=== PATIENT | female | born 1930 | race Caucasian/White ===

== ENCOUNTER 2018-01-06 14:05 | Observation (INO) | payer OTHER ==
[2018-01-06] VITALS (7 sets, daily range): BP systolic 121–170; BP diastolic 55–75; PULSE 90–108; RESP 15–18; TEMP 98.2; O2SAT 95–98
[~2018-01-06 14:05] MED LIST: ACET325 PO; AMLO5TAB22 PO; ASPI81TA82 PO; BISA10SU8 PR; CALTCHW4 PO; LISI-360 PO; LOVA20TA PO; MILKSUS5 PO; OXYC1SOL5 PO; PERI8.6T PO
--- NOTE | 2018-01-06 14:22 | PD ---
HPI Chief Complaint: Syncope/Near-Syncope Time Seen by Provider: 14:15 Travel History International Travel<30 days: No Contact w/Intl Traveler<30days: No Traveled to known affect area: No History of Present Illness HPI The patient is a 87-year-old female who presents emergency department via EMS from [facility] after possible syncopal episode. EMS states the patient lives in an [place], independent portion, but was at a dining room table with other individuals when she apparently had a syncopal episode. The patient apparently slumped to the left, was slow to respond, however, when EMS arrived and laid her flat, she was more awake and alert. Upon arrival the patient is a somewhat limited historian, hard of hearing, but she denies any complaints. She does not recall any syncopal episode. EMS states that the patient never fell out of her chair at the dining room table, there is no evidence of trauma. Symptoms are mild to moderate, self resolving, no known exacerbating factors. She denies any headache, neck pain, chest pain, shortness breath, palpitations , nausea, vomiting, or abdominal pain. PFSH Past Medical History Hx Anticoagulant Therapy: Yes (asa) Arthritis: Yes Asthma: No Heart Rhythm Problems: No Cancer: No Cardiovascular Problems: Yes High Cholesterol: Yes Chest Pain: No Congestive Heart Failure: No COPD: No Cerebrovascular Accident: No Diabetes: No Endocrine: No Genitourinary: No Immune Disorder: No Musculoskeletal: Yes Neurologic: Yes Psychiatric: No Respiratory: Yes Migraines: No Seizures: No Sleep Apnea: No Thyroid Disease: No Past Surgical History Ear Surgery: Yes (JESSICA CATARACTS) Genitourinary Surgery: No Joint Replacement: Yes (LEFT HIP REPLACEMENT) Social History Tobacco Use: No Substance Use: No Allergies-Medications (Allergen,Severity, Reaction): Coded Allergies: No Known Allergies (Verified , 03/28/16) Reported Meds & Prescriptions Reported Meds & Active Scripts Active Reported Calcium Citrate + D3 Maximum Strength (Calcium Citrate-Vitamin D) 315-250 Mg- Unit Tab 1 Tab PO DAILY Lisinopril 10 Mg Tab 10 Mg PO DAILY Lovastatin 20 Mg Tab 20 Mg PO DAILY Aspirin 81 Mg Chew 81 Mg CHEW DAILY Amlodipine (Amlodipine Besylate) 10 Mg Tab 10 Mg PO DAILY Review of Systems ROS Limitations: Poor Historian Except as stated in HPI: all other systems reviewed are Neg HENT: No: Headaches, Lightheadedness Cardiovascular: Positive: Syncope (possible syncope per EMS), No: Chest Pain or Discomfort, Palpitations, Diaphoresis Respiratory: No: Shortness of Breath Gastrointestinal: No: Nausea, Vomiting, Abdominal Pain Musculoskeletal: No: Weakness Neurologic: Positive: Syncope (possible syncope according to EMS), No: Change in Mentation, Paresthesia, Sensory Disturbance Physical Exam Narrative GENERAL: Awake, alert, 87 year-old female who appears her stated age and is in no acute respiratory distress. SKIN: Focused skin assessment warm/dry. HEAD: Atraumatic. Normocephalic. EYES: Pupils equal and round. 3 mm bilateral and reactive. ENT: No nasal bleeding or discharge. Poor dentition. Dry mucous membranes. NECK: Trachea midline. No JVD. CARDIOVASCULAR: Regular rate and rhythm. No murmur appreciated. RESPIRATORY: No accessory muscle use. Clear to auscultation. Breath sounds equal bilaterally. GASTROINTESTINAL: Abdomen soft, non-tender, nondistended. No rebound tenderness. MUSCULOSKELETAL: No obvious deformities. No clubbing. No cyanosis. No edema. NEUROLOGICAL: Awake and alert. No obvious cranial nerve deficits. Motor grossly within normal limits. Normal speech. Oriented to person and Pres. but not month or year. PSYCHIATRIC: Appropriate mood and affect; insight and judgment normal. Data Data Last Documented VS Vital Signs Date Time Temp Pulse Resp B/P (MAP) Pulse Ox O2 Delivery O2 Flow Rate FiO2 01/06/18 16:38 101 18 157/67 (97) 98 01/06/18 15:12 Room Air 01/06/18 14:16 98.2 Orders Orders Electrocardiogram (01/06/18 14:16) Complete Blood Count With Diff (01/06/18 14:16) Comprehensive Metabolic Panel (01/06/18 14:16) Magnesium (Mg) (01/06/18 14:16) Ckmb (Isoenzyme) Profile (01/06/18 14:16) Troponin I (01/06/18 14:16) Urinalysis - C+S If Indicated (01/06/18 14:16) Chest, Single Ap (01/06/18 14:16) Ecg Monitoring (01/06/18 14:16) Iv Access Insert/Monitor (01/06/18 14:16) Oximetry (01/06/18 14:16) Sodium Chloride 0.9% Flush (Ns Flush) (01/06/18 14:30) Orthostatic Vital Signs (01/06/18 14:16) Sodium Chlorid 0.9% 500 Ml Inj (Ns 500 M (01/06/18 14:30) Cath For Specimen (01/06/18 14:18) Ct Brain W/O Iv Contrast(Rout) (01/06/18 ) CKMB (01/06/18 16:32) CKMB% (01/06/18 16:32) Labs Laboratory Tests Test 01/06/18 14:35 01/06/18 15:08 01/06/18 16:32 White Blood Count 16.5 TH/MM3 Red Blood Count 4.95 MIL/MM3 Hemoglobin 15.1 GM/DL Hematocrit 44.4 % Mean Corpuscular Volume 89.7 FL Mean Corpuscular Hemoglobin 30.5 PG Mean Corpuscular Hemoglobin Concent 34.0 % Red Cell Distribution Width 15.0 % Platelet Count 950 TH/MM3 Mean Platelet Volume 8.0 FL Neutrophils (%) (Auto) 90.5 % Lymphocytes (%) (Auto) 4.4 % Monocytes (%) (Auto) 4.5 % Eosinophils (%) (Auto) 0.1 % Basophils (%) (Auto) 0.5 % Neutrophils # (Auto) 15.0 TH/MM3 Lymphocytes # (Auto) 0.7 TH/MM3 Monocytes # (Auto) 0.8 TH/MM3 Eosinophils # (Auto) 0.0 TH/MM3 Basophils # (Auto) 0.1 TH/MM3 CBC Comment AUTO DIFF Differential Comment AUTO DIFF CONFIRMED Urine Color YELLOW Urine Turbidity HAZY Urine pH 7.0 Urine Specific [place] 1.012 Urine Protein 30 mg/dL Urine Glucose (UA) NEG mg/dL Urine Ketones NEG mg/dL Urine Occult Blood NEG Urine Nitrite NEG Urine Bilirubin NEG Urine Urobilinogen 2.0 MG/DL Urine Leukocyte Esterase TRACE Urine RBC 2 /hpf Urine WBC 1 /hpf Urine Squamous Epithelial Cells 1 /hpf Urine Hyaline Casts 6 /lpf Urine Mucus FEW /lpf Microscopic Urinalysis Comment CATH-CULT NOT IND Blood Urea Nitrogen 14 MG/DL Creatinine 0.73 MG/DL Random Glucose 96 MG/DL Total Protein 6.0 GM/DL Albumin 2.9 GM/DL Calcium Level 7.3 MG/DL Magnesium Level 1.8 MG/DL Alkaline Phosphatase 189 U/L Aspartate Amino Transf (AST/SGOT) 40 U/L Alanine Aminotransferase (ALT/SGPT) 21 U/L Total Bilirubin 0.7 MG/DL Sodium Level 135 MEQ/L Potassium Level 5.5 MEQ/L Chloride Level 103 MEQ/L Carbon Dioxide Level 25.7 MEQ/L Anion Gap 6 MEQ/L Estimat Glomerular Filtration Rate 75 ML/MIN Protein Corrected Calcium 7.9 MG/DL Total Creatine Kinase 134 U/L Creatine Kinase MB 5.0 NG/ML Troponin I 0.04 NG/ML MDM Medical Decision Making Medical Screen Exam Complete: Yes Emergency Medical Condition: Yes Medical Record Reviewed: Yes Interpretation(s) EKG reveals sinus tachycardia with short SD interval with occasional supraventricular premature complex. Last Impressions Chest X-Ray 01/06/18 1416 Signed Impressions: Service Date/Time: Saturday, January 06, 2018 14:26 - CONCLUSION: 1. Minimal basilar scarring or subsegmental atelectasis. No effusion or pneumothorax. Mayur Howell MD Head CT 01/06/18 0000 Signed Impressions: Service Date/Time: Saturday, January 06, 2018 15:59 - CONCLUSION: 1. No acute intracranial abnormalities. Mayur Howell MD Laboratory Tests Test 01/06/18 14:35 01/06/18 15:08 01/06/18 16:32 White Blood Count 16.5 TH/MM3 Red Blood Count 4.95 MIL/MM3 Hemoglobin 15.1 GM/DL Hematocrit 44.4 % Mean Corpuscular Volume 89.7 FL Mean Corpuscular Hemoglobin 30.5 PG Mean Corpuscular Hemoglobin Concent 34.0 % Red Cell Distribution Width 15.0 % Platelet Count 950 TH/MM3 Mean Platelet Volume 8.0 FL Neutrophils (%) (Auto) 90.5 % Lymphocytes (%) (Auto) 4.4 % Monocytes (%) (Auto) 4.5 % Eosinophils (%) (Auto) 0.1 % Basophils (%) (Auto) 0.5 % Neutrophils # (Auto) 15.0 TH/MM3 Lymphocytes # (Auto) 0.7 TH/MM3 Monocytes # (Auto) 0.8 TH/MM3 Eosinophils # (Auto) 0.0 TH/MM3 Basophils # (Auto) 0.1 TH/MM3 CBC Comment AUTO DIFF Differential Comment AUTO DIFF CONFIRMED Urine Color YELLOW Urine Turbidity HAZY Urine pH 7.0 Urine Specific [place] 1.012 Urine Protein 30 mg/dL Urine Glucose (UA) NEG mg/dL Urine Ketones NEG mg/dL Urine Occult Blood NEG Urine Nitrite NEG Urine Bilirubin NEG Urine Urobilinogen 2.0 MG/DL Urine Leukocyte Esterase TRACE Urine RBC 2 /hpf Urine WBC 1 /hpf Urine Squamous Epithelial Cells 1 /hpf Urine Hyaline Casts 6 /lpf Urine Mucus FEW /lpf Microscopic Urinalysis Comment CATH-CULT NOT IND Blood Urea Nitrogen 14 MG/DL Creatinine 0.73 MG/DL Random Glucose 96 MG/DL Total Protein 6.0 GM/DL Albumin 2.9 GM/DL Calcium Level 7.3 MG/DL Magnesium Level 1.8 MG/DL Alkaline Phosphatase 189 U/L Aspartate Amino Transf (AST/SGOT) 40 U/L Alanine Aminotransferase (ALT/SGPT) 21 U/L Total Bilirubin 0.7 MG/DL Sodium Level 135 MEQ/L Potassium Level 5.5 MEQ/L Chloride Level 103 MEQ/L Carbon Dioxide Level 25.7 MEQ/L Anion Gap 6 MEQ/L Estimat Glomerular Filtration Rate 75 ML/MIN Protein Corrected Calcium 7.9 MG/DL Total Creatine Kinase 134 U/L Troponin I 0.04 NG/ML Differential Diagnosis Differential diagnosis includes syncope, arrhythmia, CVA, TIA, seizure, dehydration, electrolyte abnormality. Narrative Course IV was established, labs are drawn and sent, and the patient was placed on cardiac telemetry monitoring and continuous pulse oximetry monitoring. EKG was ordered and interpreted. Orthostatic vital signs were obtained. CT of the brain was obtained. The patient was administered IV fluids. CT of the rain is negative. Chest x-rays unremarkable. The patient's UA is unremarkable. The patient does have tachycardia with a heart rate greater than 100, white, 16.5, no evidence of infection. Chest x-ray just reveals scarring and atelectasis. Patient is afebrile. The patient had a syncopal episode with loss of consciousness according to EMS, is normally alert and oriented 4. Nursing staff talked with the patient's daughter who lives in [place], the patient apparently is alert, and year. She does live in independent portion of [facility]. She is now only alert and oriented 1 out of 4, no evidence of underlying infection. May be seizure with postictal state versus syncope versus underlying infection. Therefore, patient will be 23 hour observation. The patient has [employer], therefore, [facility] were paged for 23 hour observation. Sepsis Criteria SIRS Criteria (2 or more): Heart rate over 90, WBC > 18217, < 4000 or > 10% bands Criteria Outcome: Meets SIRS criteria Physician Communication Physician Communication The patient has [employer], therefore, [facility] were paged for 23 hour observation. I discussed the patient Dr. Flaherty who agrees with 23 hour observation. Diagnosis Primary Impression: Syncope Qualified Codes: R55 - Syncope and collapse Additional Impressions: Altered mental status Qualified Codes: R41.0 - Disorientation, unspecified SIRS (systemic inflammatory response syndrome) Admitting Information Admitting Physician Requests: Observation Condition: Stable Damian Ritchie MD Jan 06, 2018 14:22
[2018-01-06] MEDS ORDERED: SODIUM CHLORID 0.9% 500 ML INJ 500 ML IV ONE (14:30)
[2018-01-06] MEDS ORDERED: SODIUM CHLORIDE 0.9% FLUSH 10 ML FLUSH IVF PRN (14:30)
[2018-01-06] MEDS ORDERED: AMLO10TA2 PO (14:53)
[2018-01-06] MEDS ORDERED: LISI10TA3 PO (14:53)
[2018-01-06] MEDS ORDERED: LOVA20TA PO (14:53)
[2018-01-06] MEDS ORDERED: ASPI-516 CHEW (14:53)
[2018-01-06] MEDS ORDERED: CALC1TAB19 PO (14:53)
--- NOTE | 2018-01-06 15:06 | RADRPT ---
EXAM DATE/TIME: 01/06/2018 14:26 [facility] COMPARISON: CHEST SINGLE AP, March 28, 2016, 16:33. INDICATIONS : Chest discomfort. MEDICAL HISTORY : None. SURGICAL HISTORY : None. ENCOUNTER: Initial ACUITY: 1 day PAIN SCORE: 6/10 LOCATION: Bilateral chest FINDINGS: A single view of the chest demonstrates minimal basilar atelectasis or scarring. No effusion or pneum othorax. Heart size upper limits normal. Mildly tortuous aorta. CONCLUSION: 1. Minimal basilar scarring or subsegmental atelectasis. No effusion or pneumothorax. Mayur Howell MD on January 06, 2018 at 15:03 Board Certified Radiologist. This report was verified electronically.
[2018-01-06 15:10] LABS: BASOPHIL # 0.1 TH/MM3 (0-0.2); BASOPHIL % 0.5 % (0.0-2.0); EOSINOPHIL % 0.1 % (0.0-4.0); HEMATOCRIT 44.4 % (35.0-46.0); HEMOGLOBIN 15.1 GM/DL (11.6-15.3); LYMPH % 4.4 % (9.0-44.0); LYMPHOCYTE # 0.7 TH/MM3 (1.0-4.8); MEAN CELL VOLUME 89.7 FL (80.0-100.0); MEAN CORPUSCULAR HEMOGLOBIN 30.5 PG (27.0-34.0); MONO % 4.5 % (0.0-8.0); MONOCYTE # 0.8 TH/MM3 (0-0.9); NEUT % 90.5 % (16.0-70.0); PLATELET COUNT 950 TH/MM3 (150-450); RED BLOOD COUNT 4.95 MIL/MM3 (4.00-5.30); WHITE BLOOD COUNT 16.5 TH/MM3 (4.0-11.0)
[2018-01-06 15:46] LABS: BILIRUBIN, URINE NEG (NEG); BLOOD, URINE NEG (NEG); GLUCOSE,URINE NEG (NEG); HYALINE CAST, URINE 6 /lpf (RARE); KETONE, URINE NEG (NEG); MUCUS URINE FEW /lpf (OCC); NITRITE,URINE NEG (NEG); SQUAMOUS EPITHELIAL CELL URINE 1 /hpf (0-5); URINE COLOR YELLOW (YELLW/STRAW); URINE LEUKOCYTE ESTERASE TRACE (NEG)
--- NOTE | 2018-01-06 16:33 | RADRPT ---
EXAM DATE/TIME: 01/06/2018 15:59 [facility] COMPARISON: No previous studies available for comparison. INDICATIONS : Witnessed syncopal episode. RADIATION DOSE: 35.12 CTDIvol (mGy) MEDICAL HISTORY : Cardiovascular disease. Hypertension. SURGICAL HISTORY : Hysterectomy. ENCOUNTER: Initial ACUITY: 1 day PAIN SCALE: 0/10 LOCATION: cranial TECHNIQUE: Multiple contiguous axial images were obtained of the head. Using automated exposure control and adj ustment of the mA and/or kV according to patient size, radiation dose was kept as low as reasonably a chievable to obtain optimal diagnostic quality images. DICOM format image data is available electro nically for review and comparison. FINDINGS: CEREBRUM: The ventricles are normal for age. No evidence of midline shift, mass lesion, hemorrhage or acute in farction. No extra-axial fluid collections are seen. POSTERIOR FOSSA: The cerebellum and brainstem are intact. The 4th ventricle is midline. The cerebellopontine angle i s unremarkable. EXTRACRANIAL: The visualized portion of the orbits is intact. SKULL: The calvaria is intact. No evidence of skull fracture. CONCLUSION: 1. No acute intracranial abnormalities. Mayur Howell MD on January 06, 2018 at 16:30 Board Certified Radiologist. This report was verified electronically.
[2018-01-06 17:13] LABS: ALBUMIN 2.9 GM/DL (3.4-5.0); ALKALINE PHOSPHATASE 189 U/L (45-117); ALT (GPT) 21 U/L (10-53); BICARBONATE 25.7 MEQ/L (21.0-32.0); BLOOD UREA NITROGEN 14 MG/DL (7-18); CALCIUM 7.3 MG/DL (8.5-10.1); CALCIUM-PROTEIN CORRECTED 7.9 MG/DL (8.5-10.1); CHLORIDE 103 MEQ/L (98-107); CREATININE 0.73 MG/DL (0.50-1.00); GLOMERULAR FILTRATION RATE 75 ML/MIN (>89); GLUCOSE,RANDOM 96 MG/DL (74-106); MAGNESIUM 1.8 MG/DL (1.5-2.5); SODIUM (NA) 135 MEQ/L (136-145); TOTAL BILIRUBIN ADULT 0.7 MG/DL (0.2-1.0); TROPONIN I 0.04 NG/ML (0.02-0.05)
[2018-01-06 17:15] LABS: AST (GOT) 40 U/L (15-37)
[2018-01-06] MEDS ORDERED: ONDANSETRON HCL 4 MG/2 ML VIAL IVP PRN (18:00)
[2018-01-06] MEDS ORDERED: NALOXONE HCL 0.4 MG/ML AMP IV PUSH PRN (18:00)
[2018-01-06] MEDS ORDERED: LACTULOSE SYRUP 20 GM/30 ML CUP PO PRN (18:00)
[2018-01-06] MEDS ORDERED: BISACODYL 10 MG SUPP RECTAL PRN (18:00)
[2018-01-06] MEDS ORDERED: MAGNESIUM HYDROXIDE SUSP 30 ML CUP PO PRN (18:00)
[2018-01-06] MEDS ORDERED: SENNOSIDES 8.6 MG TAB PO PRN (18:00)
[2018-01-06] MEDS ORDERED: ACETAMINOPHEN 325 MG TAB PO PRN (18:00)
--- NOTE | 2018-01-06 18:18 | HHI.HP ---
[facility] Eugenio Ortiz, DO Admission Diagnosis syncope, altered mental status, SIRS Diagnoses: (1) Hyperlipemia (2) SIRS (systemic inflammatory response syndrome) (3) Syncope (4) Altered mental status (5) HTN (hypertension) Chief Complaint: Syncope Travel History International Travel<30 Days: No Contact w/Intl Traveler <30 Da: No Traveled to Known Affected Are: No Sepsis Criteria SIRS Criteria (2 or more): Heart rate over 90, WBC > 31184, < 4000 or > 10% bands Criteria Outcome: Meets SIRS criteria History of Present Illness The patient is an 87-year-old female who presented to the emergency department following apparent syncopal episode. She resides in assisted living. The patient is unable to provide meaningful history. She is oriented only to self. History is gathered from discussion with the ER physician and review of the electronic medical record. The patient was reportedly sitting at a dining room table with other individuals. She was seen to slump to the left and was not responding to verbal stimuli. Upon EMS arrival, patient was more alert, but remained confused. The patient does not know why she is here. She also does not know that she is in the hospital. No other episodes were reported. The patient apparently has not had any known falls. Review of Systems ROS Limitations: Clinical Condition, Altered Mental Status, Poor Historian Constitutional: DENIES: Fever, Chills, Night Sweats Eyes: DENIES: Blurred vision, Vision loss Ears, nose, mouth, throat: DENIES: Hearing loss Respiratory: DENIES: Cough, Wheezing, Sputum production, Shortness of breath Cardiovascular: DENIES: Chest pain, Palpitations, Dyspnea on Exertion, Lower Extremity Edema Gastrointestinal: DENIES: Abdominal pain, Constipation, Diarrhea, Nausea, Vomiting Genitourinary: DENIES: Urinary frequency, Urinary incontinence, Urgency, Hematuria, Dysuria, Nocturia Musculoskeletal: DENIES: Joint pain, Muscle aches Integumentary: DENIES: Pruritus, Rash Hematologic/lymphatic: DENIES: Bruising Neurologic: DENIES: Headache Past Family Social History Past Medical History Osteoarthritis Hyperlipidemia Hypertension Past Surgical History Bilateral cataract surgery Left hip replacement Reported Medications Calcium Citrate + D3 Maximum Strength (Calcium Citrate-Vitamin D) 315-250 Mg- Unit Tab 1 Tab PO DAILY Lisinopril 10 Mg Tab 10 Mg PO DAILY Lovastatin 20 Mg Tab 20 Mg PO DAILY Aspirin 81 Mg Chew 81 Mg CHEW DAILY Amlodipine (Amlodipine Besylate) 10 Mg Tab 10 Mg PO DAILY Allergies: Coded Allergies: No Known Allergies (Verified , 03/28/16) Family History Unobtainable due to patient's altered mental status Social History Unobtainable. Per ER documentation, no history of tobacco or illicit drug use. Physical Exam Vital Signs Vital Signs Date Time Temp Pulse Resp B/P (MAP) Pulse Ox O2 Delivery O2 Flow Rate FiO2 01/06/18 16:38 101 18 157/67 (97) 98 01/06/18 15:12 16 95 Room Air 01/06/18 14:16 98.2 90 16 121/55 (77) 95 Physical Exam GENERAL: Thin elderly female in no acute distress. HEENT: Normocephalic, atraumatic. Pupils equal, round and reactive. Extraocular movements intact. No scleral icterus. No injection or drainage. Oropharynx is clear. Mucous membranes are moist. CARDIOVASCULAR: Regular rate and rhythm without murmurs, gallops, or rubs. RESPIRATORY: Clear to auscultation. No wheezes, rales, or rhonchi. Breathing is non-labored. GASTROINTESTINAL: Abdomen soft, non-tender, nondistended. EXTREMITIES: No lower extremity edema. No calf tenderness. PSYCH: Alert confused. Oriented only to self. NEURO: Cranial nerves II through XII are grossly intact. Patient has apparent weakness of both lower extremities, but it is difficult to tell if this is because she is not adequately following directions during exam. Production [employer] Solderer strength is 4/5 and equal bilaterally. Laboratory Laboratory Tests Test 01/06/18 14:35 01/06/18 15:08 01/06/18 16:32 White Blood Count 16.5 Red Blood Count 4.95 Hemoglobin 15.1 Hematocrit 44.4 Mean Corpuscular Volume 89.7 Mean Corpuscular Hemoglobin 30.5 Mean Corpuscular Hemoglobin Concent 34.0 Red Cell Distribution Width 15.0 Platelet Count 950 Mean Platelet Volume 8.0 Neutrophils (%) (Auto) 90.5 Lymphocytes (%) (Auto) 4.4 Monocytes (%) (Auto) 4.5 Eosinophils (%) (Auto) 0.1 Basophils (%) (Auto) 0.5 Neutrophils # (Auto) 15.0 Lymphocytes # (Auto) 0.7 Monocytes # (Auto) 0.8 Eosinophils # (Auto) 0.0 Basophils # (Auto) 0.1 CBC Comment AUTO DIFF Differential Comment AUTO DIFF CONFIRMED Urine Color YELLOW Urine Turbidity HAZY Urine pH 7.0 Urine Specific [place] 1.012 Urine Protein 30 Urine Glucose (UA) NEG Urine Ketones NEG Urine Occult Blood NEG Urine Nitrite NEG Urine Bilirubin NEG Urine Urobilinogen 2.0 Urine Leukocyte Esterase TRACE Urine RBC 2 Urine WBC 1 Urine Squamous Epithelial Cells 1 Urine Hyaline Casts 6 Urine Mucus FEW Microscopic Urinalysis Comment CATH-CULT NOT IND Blood Urea Nitrogen 14 Creatinine 0.73 Random Glucose 96 Total Protein 6.0 Albumin 2.9 Calcium Level 7.3 Magnesium Level 1.8 Alkaline Phosphatase 189 Aspartate Amino Transf (AST/SGOT) 40 Alanine Aminotransferase (ALT/SGPT) 21 Total Bilirubin 0.7 Sodium Level 135 Potassium Level 5.5 Chloride Level 103 Carbon Dioxide Level 25.7 Anion Gap 6 Estimat Glomerular Filtration Rate 75 Protein Corrected Calcium 7.9 Total Creatine Kinase 134 Creatine Kinase MB 5.0 Troponin I 0.04 Result Diagram: 01/06/18 1435 01/06/18 1632 Imaging Last Impressions Chest X-Ray 01/06/18 1416 Signed Impressions: Service Date/Time: Saturday, January 06, 2018 14:26 - CONCLUSION: 1. Minimal basilar scarring or subsegmental atelectasis. No effusion or pneumothorax. Mayur Howell MD Head CT 01/06/18 0000 Signed Impressions: Service Date/Time: Saturday, January 06, 2018 15:59 - CONCLUSION: 1. No acute intracranial abnormalities. Mayur Howell MD Caprini VTE Risk Assessment Caprini VTE Risk Assessment: Mod/High Risk (score >= 2) Caprini Risk Assessment Model Point Value = 1 Point Value = 2 Point Value = 3 Point Value = 5 Age 41-60 Minor surgery BMI > 25 kg/m2 Swollen legs Varicose veins or History of unexplained or recurrent spontaneous Oral contraceptives or hormone replacement Sepsis (< 1 month) Serious lung disease, including pneumonia (< 1 month) Abnormal pulmonary function Acute myocardial infarction Congestive heart failure (< 1 month) History of inflammatory bowel disease Medical patient at bed rest Age 61-74 Arthroscopic surgery Major open surgery (> 45 min) Laparoscopic surgery (> 45 min) Malignancy Confined to bed (> 72 hours) Immobilizing plaster cast Central venous access Age >= 75 History of VTE Family history of VTE Factor V Leiden Prothrombin [id number] Lupus anticoagulant Anticardiolipin antibodies Elevated serum homocysteine Heparin-induced thrombocytopenia Other congenital or acquired thrombophilia Stroke (< 1 month) Elective arthroplasty Hip, pelvis, or leg fracture Acute spinal cord injury (< 1 month) Prophylaxis Regimen Total Risk Factor Score Risk Level Prophylaxis Regimen 0-1 Low Early ambulation 2 Moderate Order ONE of the following: *Sequential Compression Device (SCD) *Heparin 5000 units SQ BID 3-4 Higher Order ONE of the following medications: *Heparin 5000 units SQ TID *Enoxaparin/Lovenox 40 mg SQ daily (WT < 150 kg, CrCl > 30 mL/min) *Enoxaparin/Lovenox 30 mg SQ daily (WT < 150 kg, CrCl > 10-29 mL/min) *Enoxaparin/Lovenox 30 mg SQ BID (WT < 150 kg, CrCl > 30 mL/min) AND/OR *Sequential Compression Device (SCD) 5 or more Highest Order ONE of the following medications: *Heparin 5000 units SQ TID (Preferred with Epidurals) *Enoxaparin/Lovenox 40 mg SQ daily (WT < 150 kg, CrCl > 30 mL/min) *Enoxaparin/Lovenox 30 mg SQ daily (WT < 150 kg, CrCl > 10-29 mL/min) *Enoxaparin/Lovenox 30 mg SQ BID (WT < 150 kg, CrCl > 30 mL/min) AND *Sequential Compression Device (SCD) Assessment and Plan Assessment and Plan 1. Syncopal episode: Uncertain etiology. Patient was reportedly sitting at a table when the episode occurred. She also remains confused following the episode. No seizure activity was reported. CT of the head is negative. Monitor on cardiac telemetry. Check echocardiogram, EEG. Rule out ACS with serial cardiac enzymes and EKGs. 2. Hypertension: Continue lisinopril, amlodipine. 3. Hyperlipidemia: Continue lovastatin. 4. Sirs: Patient meets criteria with tachycardia, leukocytosis. No obvious source of infection. Urinalysis is negative. Patient is afebrile. Chest x- ray shows probable atelectasis. 5. DVT prophylaxis: SCDs, ARACELI hose, heparin. Problem Qualifiers (1) Syncope: Qualified Codes: R55 - Syncope and collapse (2) Altered mental status: Qualified Codes: R41.0 - Disorientation, unspecified Luis Manuel Flaherty MD Jan 06, 2018 18:18
[2018-01-06] MEDS: SODIUM CHLOR 0.9% 1000 ML INJ 1,000 ML IV SCH (19:00)
[2018-01-06] MEDS: HEPARIN SODIUM - SQ 10,000 UNITS/ML VIAL SQ SCH (20:27)
[2018-01-06 21:53] LABS: TROPONIN I 0.05 NG/ML (0.02-0.05)
[2018-01-07] VITALS (8 sets, daily range): BP systolic 102–148; BP diastolic 51–76; PULSE 67–86; RESP 12–16; TEMP 97.6–98.1; O2SAT 91–96
--- NOTE | 2018-01-07 09:18 | HHI.PR ---
Subjective Remarks Follow up encephalopathy, syncopal episode. Patient remains confused. She is only oriented to self. She denies pain, dyspnea, nausea. Objective Vitals Vital Signs Date Time Temp Pulse Resp B/P (MAP) Pulse Ox O2 Delivery O2 Flow Rate FiO2 01/07/18 05:00 75 01/07/18 04:33 97.6 78 15 129/60 (83) 92 01/06/18 21:27 98.2 94 15 126/57 (80) 98 01/06/18 20:35 01/06/18 20:00 98 01/06/18 18:13 96 21 01/06/18 16:38 101 18 157/67 (97) 98 01/06/18 15:12 16 95 Room Air 01/06/18 15:05 108 16 170/75 (106) 97 Nasal Cannula 2.00 01/06/18 14:16 98.2 90 16 121/55 (77) 95 I/O 01/06/18 01/06/18 01/06/18 01/07/18 01/07/18 01/07/18 07:00 15:00 23:00 07:00 15:00 23:00 Intake Total 500 ml 480 ml Balance 500 ml 480 ml Intake Oral 480 ml IV Total 500 ml # Voids 2 Result Diagram: 01/06/18 1435 01/06/18 1632 Imaging Last Impressions Chest X-Ray 01/06/18 1416 Signed Impressions: Service Date/Time: Saturday, January 06, 2018 14:26 - CONCLUSION: 1. Minimal basilar scarring or subsegmental atelectasis. No effusion or pneumothorax. Mayur Howell MD Head CT 01/06/18 0000 Signed Impressions: Service Date/Time: Saturday, January 06, 2018 15:59 - CONCLUSION: 1. No acute intracranial abnormalities. Mayur Howell MD Objective Remarks General: Thin elderly female in no acute distress. Heart: Regular rate and rhythm. No murmur. Lungs: Clear to auscultation bilaterally. No wheezes, rales, or rhonchi. Breathing is nonlabored. Abdomen: Soft, nontender, nondistended. Extremities: No lower extremity edema. Psych: Alert, confused. Patient oriented only to self. Neuro: Good strength on flexion and extension at the ankle. Patient does not really follow commands for more neuro exam. Procedures None Urinary Catheter: No Vascular Central Line Catheter: No A/P Problem List: (1) Hyperlipemia ICD Code: E78.5 - Hyperlipidemia, unspecified Status: Acute (2) SIRS (systemic inflammatory response syndrome) ICD Code: R65.10 - Systemic inflammatory response syndrome (SIRS) of non- infectious origin without acute organ dysfunction Status: Acute (3) Syncope ICD Code: R55 - Syncope and collapse Status: Acute (4) Altered mental status ICD Code: R41.82 - Altered mental status, unspecified Status: Acute (5) HTN (hypertension) ICD Code: I10 - Essential (primary) hypertension Status: Chronic Assessment and Plan 1. Syncopal episode: Uncertain etiology. Patient was reportedly sitting at a table when the episode occurred. She remains confused. No seizure activity was reported. CT of the head is negative. Monitor on cardiac telemetry. Third set of cardiac enzymes is pending. EEG and echocardiogram are pending. Consult neurology for further recommendations. 2. Hypertension: Continue lisinopril, amlodipine. 3. Hyperlipidemia: Continue lovastatin. 4. Sirs: Patient meets criteria with tachycardia, leukocytosis. No obvious source of infection. Urinalysis is negative. Patient is afebrile. Chest x- ray shows probable atelectasis. 5. Leukocytosis: Uncertain etiology. Labs are pending this morning. 6. Hyperkalemia: Hemolysis noted on sample sent to lab. Repeat labs are pending. 7. DVT prophylaxis: SCDs, ARACELI hose, heparin. 8. Code status: FULL CODE I spoke with the patient's daughter (who is the healthcare surrogate) and son-in -law via telephone. States that she was recently given oxycodone by her PCP for back pain. They are uncertain if she took it prior to this episode. They state that her mental status has been very good with only occasional confusion recently. She is able to live independently at baseline. At this time she is full code. She has a living will, which her daughter will review and let us know if there are some aspects of the code status that she would want changed. Problem Qualifiers (1) Syncope: Qualified Codes: R55 - Syncope and collapse (2) Altered mental status: Qualified Codes: R41.0 - Disorientation, unspecified Luis aMnuel Flaherty MD Jan 07, 2018 09:18
[2018-01-07 10:12] LABS: BASOPHIL # 0.1 TH/MM3 (0-0.2); BASOPHIL % 0.8 % (0.0-2.0); EOSINOPHIL # 0.1 TH/MM3 (0-0.4); EOSINOPHIL % 0.7 % (0.0-4.0); HEMATOCRIT 42.5 % (35.0-46.0); HEMOGLOBIN 14.5 GM/DL (11.6-15.3); LYMPH % 11.9 % (9.0-44.0); LYMPHOCYTE # 1.2 TH/MM3 (1.0-4.8); MEAN CELL VOLUME 89.9 FL (80.0-100.0); MEAN CORPUSCULAR HEMOGLOBIN 30.6 PG (27.0-34.0); MEAN PLATELET VOLUME 7.9 FL (7.0-11.0); MONO % 8.3 % (0.0-8.0); MONOCYTE # 0.9 TH/MM3 (0-0.9); NEUT % 78.3 % (16.0-70.0); PLATELET COUNT 710 TH/MM3 (150-450); RED BLOOD COUNT 4.72 MIL/MM3 (4.00-5.30); RED CELL DISTRIBUTION WIDTH 14.9 % (11.6-17.2); WHITE BLOOD COUNT 10.3 TH/MM3 (4.0-11.0)
[2018-01-07] MEDS: PRAVASTATIN SOD 20 MG TAB PO SCH (10:37)
[2018-01-07] MEDS: LISINOPRIL 10 MG TAB PO SCH (10:37)
[2018-01-07] MEDS: ASPIRIN 81 MG CHEW TAB CHEW SCH (10:37)
[2018-01-07] MEDS: CALCIUM/VITAMIN D 250 MG/125 U TAB PO SCH (10:38)
[2018-01-07] MEDS: HEPARIN SODIUM - SQ 10,000 UNITS/ML VIAL SQ SCH ×2 (10:38→22:09)
[2018-01-07 11:02] LABS: ALBUMIN 2.9 GM/DL (3.4-5.0); ALKALINE PHOSPHATASE 183 U/L (45-117); ALT (GPT) 16 U/L (10-53); AST (GOT) 15 U/L (15-37); BICARBONATE 27.8 MEQ/L (21.0-32.0); BLOOD UREA NITROGEN 14 MG/DL (7-18); CALCIUM 8.4 MG/DL (8.5-10.1); CHLORIDE 101 MEQ/L (98-107); CREATININE 0.66 MG/DL (0.50-1.00); GLOMERULAR FILTRATION RATE 85 ML/MIN (>89); GLUCOSE,RANDOM 73 MG/DL (74-106); SODIUM (NA) 136 MEQ/L (136-145); TOTAL BILIRUBIN ADULT 0.7 MG/DL (0.2-1.0); TOTAL PROTEIN 5.9 GM/DL (6.4-8.2); TROPONIN I 0.03 NG/ML (0.02-0.05)
--- NOTE | 2018-01-07 12:30 | MB ---
cc: Sophia Jennings MD DATE OF CONSULT: REASON FOR CONSULTATION: Encephalopathy. The patient does not know why she is here. History is taken from the chart. An 87-year-old woman who came to the hospital for possible syncope. Lives in an assisted living. Apparently ER physician found out that apparently she was sitting in a dining room and slumped to the left, not responding. Currently, she knows she is at [facility]. She has a history of hypertension, hyperlipidemia, on lisinopril, lovastatin, baby aspirin, amlodipine. ALLERGIES: NONE REPORTED. FAMILY HISTORY: Noncontributory at this time. SOCIAL HISTORY: Apparently lives in assisted living. On exam, vitals: Temperature is 97.6, pulse 76, respiratory rate 12, blood pressure 148/63. Her neck is supple. Heart is regular. She is awake and alert. She knows herself. She knows she is at [facility]. She does not know the month or the year. I asked her who the president was; she stated Galvez. Speech otherwise is fluent. Pupils reactive. Motor-barry, she seems to move everything equally. I do not see any signs of 1-sided weakness. Toes: Withdraws. DTRs of 1+. Gait is withheld. LABORATORIES: Reviewed. UA is hazy. Culture was not indicated. Chemistries: Glucose 73, GFR 85, calcium 8.4, albumin 2.9. CBC had a white count 16.5 yesterday; today it is normal. Platelets 710,000. CT head did not show anything acute. Chest x-ray: Subsegmental atelectasis. IMPRESSION: Encephalopathy, questionable etiology of syncope. EEG and echocardiogram are pending. I would also go ahead and get an MRI. There is no contraindication just to look for anything such as a stroke. Leukocytosis is uncertain etiology. Labs this morning, white count is normal. There was some report about her being given some oxycodone by her PCP. They do not know if she has taken that medicine, but I would think if she is in an assisted living, that would be controlled. Go ahead and get the EEG and echo. I am going to add an MRI and further recommendations to be made. MD ELOY Boykin , 12:15 PM , 12:28 PM
[2018-01-07] MEDS: SODIUM CHLOR 0.9% 1000 ML INJ 1,000 ML IV SCH (17:34)
--- NOTE | 2018-01-07 17:43 | RADRPT ---
EXAM DATE/TIME: 01/07/2018 17:03 [facility] COMPARISON: CT BRAIN W/O CONTRAST, January 06, 2018, 15:59. INDICATIONS : Altered mental status. CVA. MEDICAL HISTORY : Hypertension. Osteoarthritis. SURGICAL HISTORY : Right hip/ Films cleared by Rad. ENCOUNTER: Initial ACUITY: 2 day PAIN SCORE: 0/10 LOCATION: head TECHNIQUE: Multiplanar, multisequence MRI of the brain was performed without contrast. FINDINGS: Diffusion weighted images demonstrate no evidence for acute infarction. 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 There are no signs of mass or hem orrhage. CONCLUSION: Atrophy and white matter disease with no evidence for acute infarct, hemorrhage or mass. Duc Ritchie MD on January 07, 2018 at 17:40 Board Certified Radiologist. This report was verified electronically.
--- NOTE | 2018-01-07 18:34 | EKG ---
Date Performed: 01/06/2018 Time Performed: 14:57:55 PTAGE: 87 years EKG: SINUS TACHYCARDIA WITH SHORT [place] INTERVAL WITH OCCASIONAL SUPRAVENTRICULAR PREMATURE COMPLEX ES ABNORMAL RHYTHM ECG PREVIOUS TRACING : 01/04/2004 16.16 Since the prior tracing, there has been no significant benites DOCTOR: Payton Massey Interpretating Date/Time 01/07/2018 18:32:15
[2018-01-08] VITALS (9 sets, daily range): BP systolic 101–124; BP diastolic 52–63; PULSE 66–88; RESP 14–20; TEMP 97.4–98.5; O2SAT 91–95
[2018-01-08 07:34] LABS: AUTOMATED NEUTROPHIL # 7.4 TH/MM3 (1.8-7.7); BASOPHIL # 0.1 TH/MM3 (0-0.2); BASOPHIL % 0.7 % (0.0-2.0); EOSINOPHIL # 0.1 TH/MM3 (0-0.4); EOSINOPHIL % 1.4 % (0.0-4.0); HEMATOCRIT 38.8 % (35.0-46.0); HEMOGLOBIN 13.5 GM/DL (11.6-15.3); LYMPHOCYTE # 1.2 TH/MM3 (1.0-4.8); MEAN CELL VOLUME 91.6 FL (80.0-100.0); MEAN CORPUSCULAR HEMOGLOBIN 31.7 PG (27.0-34.0); MEAN CORPUSCULAR HGB CONC 34.6 % (32.0-36.0); MEAN PLATELET VOLUME 7.9 FL (7.0-11.0); NEUT % 75.9 % (16.0-70.0); PLATELET COUNT 633 TH/MM3 (150-450); RED BLOOD COUNT 4.24 MIL/MM3 (4.00-5.30); WHITE BLOOD COUNT 9.8 TH/MM3 (4.0-11.0)
[2018-01-08 08:02] LABS: BICARBONATE 27.9 MEQ/L (21.0-32.0); CALCIUM 8.4 MG/DL (8.5-10.1); MAGNESIUM 1.8 MG/DL (1.5-2.5)
[2018-01-08 08:09] LABS: CREATININE 0.64 MG/DL (0.50-1.00)
[2018-01-08] MEDS: HEPARIN SODIUM - SQ 10,000 UNITS/ML VIAL SQ SCH ×2 (08:30→19:45)
[2018-01-08] MEDS: ASPIRIN 81 MG CHEW TAB CHEW SCH (08:30)
[2018-01-08] MEDS: LISINOPRIL 10 MG TAB PO SCH (08:30)
[2018-01-08] MEDS: PRAVASTATIN SOD 20 MG TAB PO SCH (08:30)
[2018-01-08] MEDS: CALCIUM/VITAMIN D 250 MG/125 U TAB PO SCH (08:30)
--- NOTE | 2018-01-08 08:33 | HHI.PR ---
Subjective Remarks Follow up encephalopathy, weakness. Patient has no complaints at this time. Denies pain, dyspnea, nausea, vomiting. She remains confused. Objective Vitals Vital Signs Date Time Temp Pulse Resp B/P (MAP) Pulse Ox O2 Delivery O2 Flow Rate FiO2 01/08/18 07:29 97.8 72 18 118/59 (78) 95 01/08/18 07:25 66 01/08/18 04:03 97.4 83 14 121/63 (82) 95 01/08/18 00:22 97.9 75 16 110/55 (73) 94 01/07/18 23:13 70 01/07/18 20:34 97.6 78 16 102/51 (68) 91 01/07/18 20:00 95 01/07/18 15:36 98.1 86 16 117/76 (90) 96 01/07/18 09:22 97.6 76 12 148/63 (91) 94 I/O 01/07/18 01/07/18 01/07/18 01/08/18 01/08/18 01/08/18 07:00 15:00 23:00 07:00 15:00 23:00 Intake Total 480 ml Balance 480 ml Intake Oral 480 ml # Voids 2 3 2 Result Diagram: 01/08/18 0610 01/08/18 0610 Imaging Last Impressions Brain MRI 01/07/18 0000 Signed Impressions: Service Date/Time: Sunday, January 07, 2018 17:03 - CONCLUSION: Atrophy and white matter disease with no evidence for acute infarct, hemorrhage or mass. Duc Ritchie MD Chest X-Ray 01/06/18 1416 Signed Impressions: Service Date/Time: Saturday, January 06, 2018 14:26 - CONCLUSION: 1. Minimal basilar scarring or subsegmental atelectasis. No effusion or pneumothorax. Mayur Howell MD Head CT 01/06/18 0000 Signed Impressions: Service Date/Time: Saturday, January 06, 2018 15:59 - CONCLUSION: 1. No acute intracranial abnormalities. Mayur Howell MD Objective Remarks General: Thin elderly female in no acute distress. Heart: Regular rate and rhythm. No murmur. Lungs: Clear to auscultation bilaterally. No wheezes, rales, or rhonchi. Breathing is nonlabored. Abdomen: Soft, nontender, nondistended. Extremities: No lower extremity edema. Psych: Alert, confused. Patient oriented only to self. States the year is 1920. Procedures None Urinary Catheter: No Vascular Central Line Catheter: No A/P Problem List: (1) Hyperlipemia ICD Code: E78.5 - Hyperlipidemia, unspecified Status: Acute (2) SIRS (systemic inflammatory response syndrome) ICD Code: R65.10 - Systemic inflammatory response syndrome (SIRS) of non- infectious origin without acute organ dysfunction Status: Acute (3) Syncope ICD Code: R55 - Syncope and collapse Status: Acute (4) Altered mental status ICD Code: R41.82 - Altered mental status, unspecified Status: Acute (5) HTN (hypertension) ICD Code: I10 - Essential (primary) hypertension Status: Chronic Assessment and Plan 1. Syncopal episode: Uncertain etiology. Patient was reportedly sitting at a table when the episode occurred. She remains confused. No seizure activity was reported. CT of the head is negative. Monitor on cardiac telemetry. Third set of cardiac enzymes is pending. EEG and echocardiogram are pending. Appreciate neurology recommendations. MRI shows atrophy and white matter disease with no evidence for acute infarct, hemorrhage, or mass. 2. Hypertension: Continue lisinopril, amlodipine. 3. Hyperlipidemia: Continue lovastatin. 4. Sirs: Patient meets criteria with tachycardia, leukocytosis. No obvious source of infection. Urinalysis is negative. Patient remains afebrile. Chest x-ray shows probable atelectasis. 5. Leukocytosis: Uncertain etiology. Resolved. 6. Hyperkalemia: Hemolysis noted on sample sent to lab. Resolved. 7. DVT prophylaxis: SCDs, ARACELI hose, heparin. 8. Code status: FULL CODE I spoke with the patient's daughter (who is the healthcare surrogate) and son-in -law via telephone on 01/07/18. Daughter states that the patient was recently given oxycodone by her PCP for back pain. They are uncertain if she had been taking it prior to this episode. They state that her mental status has been very good with only occasional confusion recently. She is able to live independently at baseline. At this time she is full code. She has a living will , which her daughter will review and let us know if there are some aspects of the code status that she would want changed. Problem Qualifiers (1) Syncope: Qualified Codes: R55 - Syncope and collapse (2) Altered mental status: Qualified Codes: R41.0 - Disorientation, unspecified Luis Manuel Flaherty MD Jan 08, 2018 08:33
[2018-01-08 09:10] LABS: BANDS 8 % (0-6); LYMPHOCYTES 11 % (9-44); METAMYELOCYTES 2 % (0-1); MONOCYTES 6 % (0-8); MYELOCYTES 1 % (0-0); NEUTROPHIL # MANUAL DIFF 7.8 TH/MM3 (1.8-7.7); OVALOCYTES 1+ (NORMAL); POLYS (SEG NEUTROPHILS) 69 % (16-70)
--- NOTE | 2018-01-08 12:17 | MG ---
cc: Gómez Ron MD EEG RECORD #: [id number] An 87-year-old with history of syncopal-type episode. 4-7 Hz posterior rhythm, 10-40 microvolts with low amplitude today in the frontal channels. Generalized slowing with transition into drowsy state. Appearance of theta, paroxysmal 1-2 Hz delta activity, followed by stage I and probable stage II sleep. Reasonable driving with photic stimulation. Good EEG variability and reactivity. Single-lead EKG showing sinus rhythm. INTERPRETATION: Normal awake, sleep electroencephalogram for a patient of this age group. Clinical correlation. Gómez Ron MD MG/TI , 12:01 PM , 12:16 PM
[2018-01-08] MEDS: SODIUM CHLOR 0.9% 1000 ML INJ 1,000 ML IV SCH (18:00)
--- NOTE | 2018-01-08 18:05 | ECHRPT ---
Indication: SYNCOPE CONCLUSIONS Normal left ventricular size. The left ventricular systolic function is normal with an estimated ejection fraction in the range of 60-65%. Mild concentric left ventricular hypertrophy. The right ventricle is mildly dilated. The left atrial size is qfws-lk-yllrbwlynz dilated. The right atrial size is dvny-dv-ofquopbvkc dilated. Mild mitral valve regurgitation. Moderate mitral annular calcification. Aortic valve sclerosis is present. Ryox-mz-zijdnvcy aortic valve regurgitation. There is mild to moderate tricuspid valve regurgitation. The estimated pulmonary arterial pressure is 53 mmHg. BP: 148 / 63 HR: 76 Rhythm: Sinus MEASUREMENTS (Male / Female) Normal Values Technical Quality:Fair 2D ECHO LV Diastolic Diameter PLAX 3.3 cm 4.2 - 5.9 / 3.9 - 5.3 cm LV Systolic Diameter PLAX 2.4 cm IVS Diastolic Thickness 1.3 cm 0.6 - 1.0 / 0.6 - 0.9 cm LVPW Diastolic Thickness 1.3 cm 0.6 - 1.0 / 0.6 - 0.9 cm LV Relative Wall Thickness 0.8 RV Internal Dim ED PLAX 3.4 cm LVOT Diameter 2.0 cm LA Systolic Diameter LX 3.5 cm 3.0 - 4.0 / 2.7 - 3.8 cm M-MODE Aortic Root Diameter MM 2.4 cm LA Systolic Diameter MM 3.4 cm LA Ao Ratio MM 1.4 AV Cusp Separation MM 1.7 cm DOPPLER AV Peak Velocity 131.0 cm/s AV Peak Gradient 6.9 mmHg AI Peak Velocity 373.0 cm/s AI Peak Gradient 55.7 mmHg AI Pressure Half Time 275.7 ms LVOT Peak Velocity 94.4 cm/s LVOT Peak Gradient 3.6 mmHg AV Area Cont Eq pk 2.3 cm MV Area PHT 2.4 cm Mitral E Point Velocity 58.9 cm/s Mitral A Point Velocity 103.0 cm/s Mitral E to A Ratio 0.6 LV E' Lateral Velocity 6.1 cm/s Mitral E to LV E' Lateral Ratio 9.6 LV E' Septal Velocity 6.9 cm/s Mitral E to LV E' Septal Ratio 8.5 TR Peak Velocity 326.0 cm/s TR Peak Gradient 42.5 mmHg Right Atrial Pressure 10.0 mmHg Pulmonary Artery Systolic Pressu 52.5 mmHg Right Ventricular Systolic Press 52.5 mmHg FINDINGS LEFT VENTRICLE Normal left ventricular size. Mild concentric left ventricular hypertrophy. RIGHT VENTRICLE The right ventricle is mildly dilated. LEFT ATRIUM The left atrial size is rmap-rp-woirfpcnad dilated. RIGHT ATRIUM The right atrial size is avbm-ny-eulzvdrxno dilated. ATRIAL SEPTUM No atrial level shunt is demonstrated by color flow Doppler interrogation. AORTA The aortic root and proximal ascending aorta are normal in size on limited imaging. MITRAL VALVE Mild mitral valve regurgitation. Moderate mitral annular calcification. AORTIC VALVE Aortic valve sclerosis is present. Odot-db-nerjhuij aortic valve regurgitation. TRICUSPID VALVE There is mild to moderate tricuspid valve regurgitation. The estimated pulmonary arterial pressure is 52.5 mmHg. PULMONARY VALVE Trivial pulmonary valve regurgitation. VESSELS The inferior vena cava is normal in size. PERICARDIUM No pericardial effusion. Yumiko Velazquez MD, FACC (Electronically Signed) Final Date:08 January 2018 18:04
[2018-01-09 00:32] VITALS: BP 123/61; PULSE 74; RESP 16; TEMP 97.7; O2SAT 93
[2018-01-09 03:43] VITALS: PULSE 69
[2018-01-09 04:22] VITALS: BP 138/63; PULSE 75; RESP 16; TEMP 98.4; O2SAT 95
[2018-01-09 07:30] VITALS: PULSE 86
[2018-01-09 07:43] VITALS: BP 140/62; PULSE 79; RESP 19; TEMP 97.5; O2SAT 92
[2018-01-09] MEDS: PRAVASTATIN SOD 20 MG TAB PO SCH (08:22)
[2018-01-09] MEDS: HEPARIN SODIUM - SQ 10,000 UNITS/ML VIAL SQ SCH (08:22)
[2018-01-09] MEDS: ASPIRIN 81 MG CHEW TAB CHEW SCH (08:22)
[2018-01-09] MEDS: CALCIUM/VITAMIN D 250 MG/125 U TAB PO SCH (08:22)
[2018-01-09] MEDS: LISINOPRIL 10 MG TAB PO SCH (08:22)
--- NOTE | 2018-01-09 08:24 | HHI.PR ---
Subjective Remarks The patient is in bed appears in nad. She is pleasantly confused. No fever or chills. Family at bedside./ patient with dementia with low score , discussed with ST Objective Vitals Vital Signs Date Time Temp Pulse Resp B/P (MAP) Pulse Ox O2 Delivery O2 Flow Rate FiO2 01/09/18 07:43 97.5 79 19 140/62 (88) 92 01/09/18 07:30 86 01/09/18 04:22 98.4 75 16 138/63 (88) 95 01/09/18 03:43 69 01/09/18 00:32 97.7 74 16 123/61 (81) 93 01/08/18 20:47 98.5 86 17 124/60 (81) 91 01/08/18 16:33 88 01/08/18 16:03 98.4 84 18 102/52 (69) 92 01/08/18 12:15 79 01/08/18 11:09 98.0 78 20 101/55 (70) 93 I/O 01/08/18 01/08/18 01/08/18 01/09/18 01/09/18 01/09/18 07:00 15:00 23:00 07:00 15:00 23:00 Intake Total 300 ml Balance 300 ml Intake Oral 300 ml # Voids 2 2 # Bowel Movements 1 Result Diagram: 01/08/18 0610 01/08/18 0610 Imaging Last Impressions Brain MRI 01/07/18 0000 Signed Impressions: Service Date/Time: Sunday, January 07, 2018 17:03 - CONCLUSION: Atrophy and white matter disease with no evidence for acute infarct, hemorrhage or mass. Duc Ritchie MD Chest X-Ray 01/06/18 1416 Signed Impressions: Service Date/Time: Saturday, January 06, 2018 14:26 - CONCLUSION: 1. Minimal basilar scarring or subsegmental atelectasis. No effusion or pneumothorax. Mayur Howell MD Head CT 01/06/18 0000 Signed Impressions: Service Date/Time: Saturday, January 06, 2018 15:59 - CONCLUSION: 1. No acute intracranial abnormalities. Mayur Howell MD Objective Remarks General: Thin elderly female in no acute distress. Heart: Regular rate and rhythm. No murmur. Lungs: Clear to auscultation bilaterally. No wheezes, rales, or rhonchi. Breathing is nonlabored. Abdomen: Soft, nontender, nondistended. Extremities: No lower extremity edema. Psych: Alert, confused. Patient oriented only to self. States the year is 1920. Procedures None A/P Problem List: (1) Hyperlipemia ICD Code: E78.5 - Hyperlipidemia, unspecified Status: Acute (2) SIRS (systemic inflammatory response syndrome) ICD Code: R65.10 - Systemic inflammatory response syndrome (SIRS) of non- infectious origin without acute organ dysfunction Status: Acute (3) Syncope ICD Code: R55 - Syncope and collapse Status: Acute (4) Altered mental status ICD Code: R41.82 - Altered mental status, unspecified Status: Acute (5) HTN (hypertension) ICD Code: I10 - Essential (primary) hypertension Status: Chronic Assessment and Plan Syncopal episode: Uncertain etiology. Patient was reportedly sitting at a table when the episode occurred. She remains confused. No seizure activity was reported. CT of the head is negative. Monitor on cardiac telemetry. Third set of cardiac enzymes is pending. EEG normal echocardiogram with EF 60% mild to mod MR. Appreciate neurology recommendations. MRI shows atrophy and white matter disease with no evidence for acute infarct, hemorrhage, or mass. Patient with dementia to follow up as OP with neurology. score 4/30 Hypertension: Continue lisinopril, amlodipine. Hyperlipidemia: Continue lovastatin. Sirs: Patient meets criteria with tachycardia, leukocytosis. No obvious source of infection. Urinalysis is negative. Patient remains afebrile. Chest x-ray shows probable atelectasis. Leukocytosis: Uncertain etiology. Resolved. Hyperkalemia: Hemolysis noted on sample sent to lab. Resolved. DVT prophylaxis: SCDs, ARACELI hose, heparin. Code status: FULL CODE Patient improved, discharge to SNF in stable condition to follow up as OP with PCP and consultants Problem Qualifiers (1) Syncope: Qualified Codes: R55 - Syncope and collapse (2) Altered mental status: Qualified Codes: R41.0 - Disorientation, unspecified Kirsten Gillette MD Jan 09, 2018 08:24
--- NOTE | 2018-01-09 09:16 | HHI.DS ---
Discharge Summary Admission Date Jan 06, 2018 at 17:43 Discharge Date: Jan 09, 2018 Admitting Diagnosis syncope, altered mental status, SIRS (1) Hyperlipemia ICD Code: E78.5 - Hyperlipidemia, unspecified Status: Acute (2) SIRS (systemic inflammatory response syndrome) ICD Code: R65.10 - Systemic inflammatory response syndrome (SIRS) of non- infectious origin without acute organ dysfunction Status: Acute (3) Syncope ICD Code: R55 - Syncope and collapse Status: Acute (4) Altered mental status ICD Code: R41.82 - Altered mental status, unspecified Status: Acute (5) HTN (hypertension) ICD Code: I10 - Essential (primary) hypertension Status: Chronic Procedures None Brief History - From Admission The patient is an 87-year-old female who presented to the emergency department following apparent syncopal episode. She resides in assisted living. The patient is unable to provide meaningful history. She is oriented only to self. History is gathered from discussion with the ER physician and review of the electronic medical record. The patient was reportedly sitting at a dining room table with other individuals. She was seen to slump to the left and was not responding to verbal stimuli. Upon EMS arrival, patient was more alert, but remained confused. The patient does not know why she is here. She also does not know that she is in the hospital. No other episodes were reported. The patient apparently has not had any known falls. CBC/BMP: 01/08/18 0610 01/08/18 0610 Significant Findings Laboratory Tests Test 01/06/18 14:35 01/06/18 15:08 01/06/18 16:32 01/06/18 20:30 White Blood Count 16.5 TH/MM3 (4.0-11.0) Platelet Count 950 TH/MM3 (150-450) Neutrophils (%) (Auto) 90.5 % (16.0-70.0) Lymphocytes (%) (Auto) 4.4 % (9.0-44.0) Neutrophils # (Auto) 15.0 TH/MM3 (1.8-7.7) Lymphocytes # (Auto) 0.7 TH/MM3 (1.0-4.8) Urine Turbidity HAZY (CLEAR) Urine Protein 30 mg/dL (NEG-TRACE) Urine Leukocyte Esterase TRACE (NEG) Urine Mucus FEW /lpf (OCC) Total Protein 6.0 GM/DL (6.4-8.2) Albumin 2.9 GM/DL (3.4-5.0) Calcium Level 7.3 MG/DL (8.5-10.1) Alkaline Phosphatase 189 U/L (45-117) Aspartate Amino Transf (AST/SGOT) 40 U/L (15-37) Sodium Level 135 MEQ/L (136-145) Potassium Level 5.5 MEQ/L (3.5-5.1) Estimat Glomerular Filtration Rate 75 ML/MIN (>89) Protein Corrected Calcium 7.9 MG/DL (8.5-10.1) Creatine Kinase MB 5.0 NG/ML (0.5-3.6) Test 01/07/18 08:57 01/08/18 06:10 Platelet Count 710 TH/MM3 (150-450) 633 TH/MM3 (150-450) Neutrophils (%) (Auto) 78.3 % (16.0-70.0) 75.9 % (16.0-70.0) Monocytes (%) (Auto) 8.3 % (0.0-8.0) 10.0 % (0.0-8.0) Neutrophils # (Auto) 8.0 TH/MM3 (1.8-7.7) Random Glucose 73 MG/DL (74-106) Total Protein 5.9 GM/DL (6.4-8.2) Albumin 2.9 GM/DL (3.4-5.0) Calcium Level 8.4 MG/DL (8.5-10.1) 8.4 MG/DL (8.5-10.1) Alkaline Phosphatase 183 U/L (45-117) Estimat Glomerular Filtration Rate 85 ML/MIN (>89) 88 ML/MIN (>89) Monocytes # (Auto) 1.0 TH/MM3 (0-0.9) Band Neutrophils % 8 % (0-6) Neutrophils # (Manual) 7.8 TH/MM3 (1.8-7.7) Metamyelocytes 2 % (0-1) Myelocytes 1 % (0-0) Platelet Estimate HIGH (NORMAL) Platelet Morphology Comment ENLARGED (NORMAL) Ovalocytes 1+ (NORMAL) Imaging Last Impressions Brain MRI 01/07/18 0000 Signed Impressions: Service Date/Time: Sunday, January 07, 2018 17:03 - CONCLUSION: Atrophy and white matter disease with no evidence for acute infarct, hemorrhage or mass. Duc Ritchie MD Chest X-Ray 01/06/18 1416 Signed Impressions: Service Date/Time: Saturday, January 06, 2018 14:26 - CONCLUSION: 1. Minimal basilar scarring or subsegmental atelectasis. No effusion or pneumothorax. Mayur Howell MD Head CT 01/06/18 0000 Signed Impressions: Service Date/Time: Saturday, January 06, 2018 15:59 - CONCLUSION: 1. No acute intracranial abnormalities. Mayur Howell MD PE at Discharge General: Thin elderly female in no acute distress. Heart: Regular rate and rhythm. No murmur. Lungs: Clear to auscultation bilaterally. No wheezes, rales, or rhonchi. Breathing is nonlabored. Abdomen: Soft, nontender, nondistended. Extremities: No lower extremity edema. Psych: Alert, confused. Patient oriented only to self. States the year is 192. Hospital Course Syncopal episode: Uncertain etiology. Patient was reportedly sitting at a table when the episode occurred. She remains confused. No seizure activity was reported. CT of the head is negative. Monitor on cardiac telemetry. Third set of cardiac enzymes is pending. EEG normal echocardiogram with EF 60% mild to mod MR. Appreciate neurology recommendations. MRI shows atrophy and white matter disease with no evidence for acute infarct, hemorrhage, or mass. Patient with dementia to follow up as OP with neurology. score 4/30 Hypertension: Continue lisinopril, amlodipine. Hyperlipidemia: Continue lovastatin. Sirs: Patient meets criteria with tachycardia, leukocytosis. No obvious source of infection. Urinalysis is negative. Patient remains afebrile. Chest x-ray shows probable atelectasis. Leukocytosis: Uncertain etiology. Resolved. Hyperkalemia: Hemolysis noted on sample sent to lab. Resolved. DVT prophylaxis: SCDs, ARACELI hose, heparin. Code status: FULL CODE Patient improved, discharge to SNF in stable condition to follow up as OP with PCP and consultants Pt Condition on Discharge: Stable Discharge Disposition: Discharge to SNF Discharge Time: > 30 minutes Discharge Instructions DIET: Follow Instructions for: Heart Healthy Diet Speech Therapy-Diet Recommends: Mechanical Soft, Chopped Meat w/Gravy Activities you can perform: Regular-No Restrictions Follow up Referrals: Neurology - 1 Week PCP Follow-up - 2-3 Days Urology - 1 Week Continued Medications: Amlodipine (Amlodipine) 10 Mg Tab 10 MG PO DAILY for Blood Pressure Management, #30 TAB 0 Refills Aspirin (Aspirin) 81 Mg Chew 81 MG CHEW DAILY, TAB 0 Refills Calcium Citrate-Vitamin D (Calcium Citrate + D3 Maximum Strength) 315-250 Mg- Unit Tab 1 TAB PO DAILY, TAB Lisinopril (Lisinopril) 10 Mg Tab 10 MG PO DAILY, #30 TAB 0 Refills Lovastatin (Lovastatin) 20 Mg Tab 20 MG PO DAILY for Cholesterol Management, #30 TAB 0 Refills Kirsten Gillette MD Jan 09, 2018 09:16
[2018-01-09 10:15] LABS: BASOPHIL # 0.1 TH/MM3 (0-0.2); BASOPHIL % 0.7 % (0.0-2.0); EOSINOPHIL # 0.1 TH/MM3 (0-0.4); EOSINOPHIL % 1.2 % (0.0-4.0); HEMATOCRIT 41.8 % (35.0-46.0); HEMOGLOBIN 14.2 GM/DL (11.6-15.3); LYMPH % 11.6 % (9.0-44.0); LYMPHOCYTE # 1.1 TH/MM3 (1.0-4.8); MEAN CORPUSCULAR HGB CONC 34.1 % (32.0-36.0); MONO % 8.4 % (0.0-8.0); MONOCYTE # 0.8 TH/MM3 (0-0.9); NEUT % 78.1 % (16.0-70.0); PLATELET COUNT 645 TH/MM3 (150-450); RED BLOOD COUNT 4.59 MIL/MM3 (4.00-5.30); RED CELL DISTRIBUTION WIDTH 14.9 % (11.6-17.2)
[2018-01-09 10:43] LABS: BICARBONATE 28.4 MEQ/L (21.0-32.0); CALCIUM 8.5 MG/DL (8.5-10.1); CREATININE 0.56 MG/DL (0.50-1.00)
== END 2018-01-09 11:28 | disposition home or self-care (01) ==
LOC: NEPE 14:05 → NEDA 17:43 → NEPHCDU 20:50
PROVIDERS: ADMIT Hospitalist; ATTEND Hospitalist
DX: R55 Syncope and collapse (principal); R41.0 Disorientation, unspecified; I10 Essential (primary) hypertension; E78.00 Pure hypercholesterolemia, unspecified; R65.10 Systemic inflammatory response syndrome (SIRS) of non-infectious origin without acute organ dysfunction; D72.829 Elevated white blood cell count, unspecified; R00.0 Tachycardia, unspecified; R94.31 Abnormal electrocardiogram [ECG] [EKG]; M19.90 Unspecified osteoarthritis, unspecified site; H91.90 Unspecified hearing loss, unspecified ear; G93.40 Encephalopathy, unspecified; E87.5 Hyperkalemia; F03.90 Unspecified dementia, unspecified severity, without behavioral disturbance, psychotic disturbance, mood disturbance, and anxiety; M54.9 Dorsalgia, unspecified; Z79.899 Other long term (current) drug therapy; Z79.82 Long term (current) use of aspirin
CPT/HCPCS: 70450; 70551; 71045; 80048; 80053; 81001; 82550; 82552; 83735; 84484; 85007; 85025; 85027; 92610; 93005; 93306; 95819; 96125; 96360; 96361; 96372; 97163; 97166; 99285; G0378; G8987; G8988; G8996; G8997; G8998; J1644; J7030; J7040; P9612

== ENCOUNTER 2018-01-25 11:48 | Emergency (ER) | payer OTHER ==
[~2018-01-25] VITALS: Ht 152.4 cm; Wt 47.3 kg
[~2018-01-25 11:48] MED LIST changes: -ACET325 PO; +AMLO10TA2 PO; -AMLO5TAB22 PO; +ASPI-516 CHEW; -ASPI81TA82 PO; -BISA10SU8 PR; +CALC1TAB19 PO; -CALTCHW4 PO; -LISI-360 PO; +LISI10TA3 PO; -MILKSUS5 PO; -OXYC1SOL5 PO; -PERI8.6T PO
[2018-01-25] MEDS ORDERED: IOHEXOL 350 MG/ML 10 ML VIAL (for RAD DIAG) IVCONTRAST ONE (11:49)
[2018-01-25 11:55] VITALS: BP 159/75; PULSE 106; RESP 16; TEMP 97.4; O2SAT 93
--- NOTE | 2018-01-25 11:59 | PD ---
HPI Chief Complaint: General Weakness Time Seen by Provider: 11:59 Travel History International Travel<30 days: No Contact w/Intl Traveler<30days: No Traveled to known affect area: No History of Present Illness HPI 87-year-old female with history of CAD, hypertension, presents emergency department for evaluation of generalized weakness, worsening over the last for 5 days. Patient was recently hospitalized and discharged to rehab for weakness. She was discharged from rehab home on Sunday. She began getting a cough on Sunday evening. She states she has had some mild shortness of breath with associated cough. She states she feels overall tired. Denies any nausea vomiting. No fever or chills. Patient denies any focal deficits. She has no chest pain. She has no other symptoms to report. PFSH Past Medical History Hx Anticoagulant Therapy: Yes (asa) Arthritis: Yes Asthma: No Heart Rhythm Problems: No Cancer: No Cardiovascular Problems: Yes High Cholesterol: Yes Chest Pain: No Congestive Heart Failure: No COPD: No Cerebrovascular Accident: No Diabetes: No Endocrine: No Genitourinary: No Hypertension: Yes Immune Disorder: No Implanted Vascular Access Dvce: Yes Musculoskeletal: Yes Neurologic: Yes Psychiatric: No Respiratory: Yes Migraines: No Seizures: No Sleep Apnea: No Thyroid Disease: No Past Surgical History Ear Surgery: Yes (JESSICA CATARACTS) Genitourinary Surgery: No Joint Replacement: Yes (LEFT HIP REPLACEMENT) Social History Alcohol Use: No Tobacco Use: No Substance Use: No Allergies-Medications (Allergen,Severity, Reaction): Coded Allergies: No Known Allergies (Verified , 03/28/16) Reported Meds & Prescriptions Reported Meds & Active Scripts Active Prednisone 20 Mg Tab 40 Mg PO DAILY Take 40 mg (2 tablets) daily for 5 days Zithromax Z-Og (Azithromycin) 250 Mg Dspk 250 Mg PO DIRECTED 500 MG (2 tabs) day 1, then 1 tab days 2-5. Reported Calcium Citrate + D3 Maximum Strength (Calcium Citrate-Vitamin D) 315-250 Mg- Unit Tab 1 Tab PO DAILY Lisinopril 10 Mg Tab 10 Mg PO DAILY Lovastatin 20 Mg Tab 20 Mg PO DAILY Aspirin 81 Mg Chew 81 Mg CHEW DAILY Amlodipine (Amlodipine Besylate) 10 Mg Tab 10 Mg PO DAILY Review of Systems Except as stated in HPI: all other systems reviewed are Neg Physical Exam Narrative GENERAL: Well-nourished elderly female patient, sitting up in bed, in no acute distress. SKIN: Focused skin assessment warm/dry. HEAD: Atraumatic. Normocephalic. EYES: Pupils equal and round. No scleral icterus. No injection or drainage. ENT: No nasal bleeding or discharge. Mucous membranes pink and moist. NECK: Trachea midline. No JVD. CARDIOVASCULAR: Tachycardic rate and rhythm. RESPIRATORY: No accessory muscle use. Diminished bilateral bases to auscultation. Breath sounds equal bilaterally. GASTROINTESTINAL: Abdomen soft, non-tender, nondistended. Hepatic and splenic margins not palpable. MUSCULOSKELETAL: No obvious deformities. No clubbing. No cyanosis. No edema. NEUROLOGICAL: Awake and alert. No obvious cranial nerve deficits. Motor grossly within normal limits. Normal speech. PSYCHIATRIC: Appropriate mood and affect; insight and judgment normal. Data Data Last Documented VS Vital Signs Date Time Temp Pulse Resp B/P (MAP) Pulse Ox O2 Delivery O2 Flow Rate FiO2 01/25/18 19:12 100 20 124/61 (82) 93 Nasal Cannula 2.00 01/25/18 11:55 97.4 Orders Orders Electrocardiogram (01/25/18 12:05) B-Type Natriuretic Peptide (01/25/18 12:05) Ckmb (Isoenzyme) Profile (01/25/18 12:05) Complete Blood Count With Diff (01/25/18 12:05) Comprehensive Metabolic Panel (01/25/18 12:05) Magnesium (Mg) (01/25/18 12:05) Prothrombin Time / Inr (Pt) (01/25/18 12:05) Act Partial Throm Time (Ptt) (01/25/18 12:05) Troponin I (01/25/18 12:05) Ecg Monitoring (01/25/18 12:05) Bilateral Bp Monitoring (01/25/18 12:05) Iv Access Insert/Monitor (01/25/18 12:05) Oximetry (01/25/18 12:05) Oxygen Administration (01/25/18 12:05) Sodium Chloride 0.9% Flush (Ns Flush) (01/25/18 12:15) Chest, Pa & Lat (01/25/18 12:05) Cath For Specimen (01/25/18 12:40) Urinalysis - C+S If Indicated (01/25/18 12:40) D-Dimer (01/25/18 13:58) Ct Pulmonary Angiogram (01/25/18 ) Iohexol 350 Inj (Omnipaque 350 Inj) (01/25/18 11:49) Ed Discharge Order (01/25/18 19:18) Labs Laboratory Tests Test 01/25/18 12:47 01/25/18 13:25 White Blood Count 9.5 TH/MM3 Red Blood Count 4.53 MIL/MM3 Hemoglobin 14.4 GM/DL Hematocrit 41.2 % Mean Corpuscular Volume 90.9 FL Mean Corpuscular Hemoglobin 31.7 PG Mean Corpuscular Hemoglobin Concent 34.9 % Red Cell Distribution Width 15.6 % Platelet Count 622 TH/MM3 Mean Platelet Volume 8.2 FL Neutrophils (%) (Auto) 87.5 % Lymphocytes (%) (Auto) 3.7 % Monocytes (%) (Auto) 8.3 % Eosinophils (%) (Auto) 0.1 % Basophils (%) (Auto) 0.4 % Neutrophils # (Auto) 8.3 TH/MM3 Lymphocytes # (Auto) 0.4 TH/MM3 Monocytes # (Auto) 0.8 TH/MM3 Eosinophils # (Auto) 0.0 TH/MM3 Basophils # (Auto) 0.0 TH/MM3 CBC Comment DIFF FINAL Differential Comment Prothrombin Time 11.1 SEC Prothromb Time International Ratio 1.1 RATIO Activated Partial Thromboplast Time 32.4 SEC D-Dimer Quantitative (PE/DVT) 0.78 MG/L FEU Blood Urea Nitrogen 10 MG/DL Creatinine 0.47 MG/DL Random Glucose 104 MG/DL Total Protein 7.2 GM/DL Albumin 3.6 GM/DL Calcium Level 8.7 MG/DL Magnesium Level 2.0 MG/DL Alkaline Phosphatase 147 U/L Aspartate Amino Transf (AST/SGOT) 24 U/L Alanine Aminotransferase (ALT/SGPT) 19 U/L Total Bilirubin 0.5 MG/DL Sodium Level 133 MEQ/L Potassium Level 3.7 MEQ/L Chloride Level 96 MEQ/L Carbon Dioxide Level 26.5 MEQ/L Anion Gap 11 MEQ/L Estimat Glomerular Filtration Rate 125 ML/MIN Total Creatine Kinase 39 U/L Troponin I LESS THAN 0.02 NG/ML B-Type Natriuretic Peptide 221 PG/ML Urine Color LIGHT-YELLOW Urine Turbidity HAZY Urine pH 7.5 Urine Specific [place] 1.010 Urine Protein TRACE mg/dL Urine Glucose (UA) NEG mg/dL Urine Ketones TRACE mg/dL Urine Occult Blood NEG Urine Nitrite NEG Urine Bilirubin NEG Urine Urobilinogen LESS THAN 2.0 MG/DL Urine Leukocyte Esterase NEG Urine RBC 1 /hpf Urine WBC LESS THAN 1 /hpf Urine Squamous Epithelial Cells <1 /hpf Urine Mucus FEW /lpf Microscopic Urinalysis Comment CATH-CULT NOT IND MDM Medical Decision Making Medical Screen Exam Complete: Yes Emergency Medical Condition: Yes Medical Record Reviewed: Yes Differential Diagnosis Pneumonia versus CHF versus electrolyte abnormality versus UTI versus PE Narrative Course 87-year-old female presents the emergency department for evaluation. Patient appears without distress. She is tachycardic with an oxygen saturation of 93% on room air. Patient has had recent hospitalization and rehab stay. Workup is initiated. Laboratory Tests Test 01/25/18 12:47 01/25/18 13:25 White Blood Count 9.5 TH/MM3 Red Blood Count 4.53 MIL/MM3 Hemoglobin 14.4 GM/DL Hematocrit 41.2 % Mean Corpuscular Volume 90.9 FL Mean Corpuscular Hemoglobin 31.7 PG Mean Corpuscular Hemoglobin Concent 34.9 % Red Cell Distribution Width 15.6 % Platelet Count 622 TH/MM3 Mean Platelet Volume 8.2 FL Neutrophils (%) (Auto) 87.5 % Lymphocytes (%) (Auto) 3.7 % Monocytes (%) (Auto) 8.3 % Eosinophils (%) (Auto) 0.1 % Basophils (%) (Auto) 0.4 % Neutrophils # (Auto) 8.3 TH/MM3 Lymphocytes # (Auto) 0.4 TH/MM3 Monocytes # (Auto) 0.8 TH/MM3 Eosinophils # (Auto) 0.0 TH/MM3 Basophils # (Auto) 0.0 TH/MM3 CBC Comment DIFF FINAL Differential Comment Prothrombin Time 11.1 SEC Prothromb Time International Ratio 1.1 RATIO Activated Partial Thromboplast Time 32.4 SEC D-Dimer Quantitative (PE/DVT) 0.78 MG/L FEU Blood Urea Nitrogen 10 MG/DL Creatinine 0.47 MG/DL Random Glucose 104 MG/DL Total Protein 7.2 GM/DL Albumin 3.6 GM/DL Calcium Level 8.7 MG/DL Magnesium Level 2.0 MG/DL Alkaline Phosphatase 147 U/L Aspartate Amino Transf (AST/SGOT) 24 U/L Alanine Aminotransferase (ALT/SGPT) 19 U/L Total Bilirubin 0.5 MG/DL Sodium Level 133 MEQ/L Potassium Level 3.7 MEQ/L Chloride Level 96 MEQ/L Carbon Dioxide Level 26.5 MEQ/L Anion Gap 11 MEQ/L Estimat Glomerular Filtration Rate 125 ML/MIN Total Creatine Kinase 39 U/L Troponin I LESS THAN 0.02 NG/ML B-Type Natriuretic Peptide 221 PG/ML Urine Color LIGHT-YELLOW Urine Turbidity HAZY Urine pH 7.5 Urine Specific [place] 1.010 Urine Protein TRACE mg/dL Urine Glucose (UA) NEG mg/dL Urine Ketones TRACE mg/dL Urine Occult Blood NEG Urine Nitrite NEG Urine Bilirubin NEG Urine Urobilinogen LESS THAN 2.0 MG/DL Urine Leukocyte Esterase NEG Urine RBC 1 /hpf Urine WBC LESS THAN 1 /hpf Urine Squamous Epithelial Cells <1 /hpf Urine Mucus FEW /lpf Microscopic Urinalysis Comment CATH-CULT NOT IND I discussed the patient with my attending physician. We will move forward with CT pulmonary angiogram. Last Impressions Chest X-Ray 01/25/18 1205 Signed Impressions: Service Date/Time: Thursday, January 25, 2018 12:39 - CONCLUSION: 1. Partial atelectasis of right middle lobe. Probable basilar scarring and atelectasis. No significant effusion. Mayur Howell MD CT Angiography 01/25/18 0000 Signed Impressions: Service Date/Time: Thursday, January 25, 2018 18:44 - CONCLUSION: 1. No pulmonary embolus. 2. Bronchiectasis lower lobes with areas of mucus plugging bilaterally in the lower lobes. Jayesh Villalta MD Findings are discussed with my attending. Patient was started on oral antibiotics for COPD exacerbation. She is provided short course of oral steroids. She is encouraged to follow-up with a primary care provider and return immediately with any acute worsening symptoms. Diagnosis Primary Impression: COPD (chronic obstructive pulmonary disease) Qualified Codes: J44.0 - Chronic obstructive pulmonary disease with acute lower respiratory infection Referrals: Primary Care Physician Patient Instructions: COPD (Chronic Obstructive Pulmonary Disease) (ED), General Instructions Additional Instructions: Humidified air may help to alleviate symptoms Follow up with your primary care provider Return immediately with any acute worsening of symptoms Med/Other Pt SpecificInfo: Prescription(s) given Scripts Prednisone (Prednisone) 20 Mg Tab 40 MG PO DAILY, #5 TAB 0 Refills Take 40 mg (2 tablets) daily for 5 days Prov: Rosaura Self 01/25/18 Azithromycin (Zithromax Z-Og) 250 Mg Dspk 250 MG PO DIRECTED for Infection, #1 DSPK 0 Refills 500 MG (2 tabs) day 1, then 1 tab days 2-5. Prov: Rosaura Self 01/25/18 Disposition: 01 DISCHARGE HOME Condition: Stable Rosaura Self Jan 25, 2018 11:59
[2018-01-25 12:10] VITALS: BP 146/65; PULSE 98; O2SAT 93
[2018-01-25] MEDS ORDERED: SODIUM CHLORIDE 0.9% FLUSH 10 ML FLUSH IVF PRN (12:15)
[2018-01-25 13:00] LABS: AUTOMATED NEUTROPHIL # 8.3 TH/MM3 (1.8-7.7); BASOPHIL % 0.4 % (0.0-2.0); EOSINOPHIL % 0.1 % (0.0-4.0); HEMATOCRIT 41.2 % (35.0-46.0); HEMOGLOBIN 14.4 GM/DL (11.6-15.3); LYMPH % 3.7 % (9.0-44.0); LYMPHOCYTE # 0.4 TH/MM3 (1.0-4.8); MEAN CELL VOLUME 90.9 FL (80.0-100.0); MEAN CORPUSCULAR HEMOGLOBIN 31.7 PG (27.0-34.0); MEAN CORPUSCULAR HGB CONC 34.9 % (32.0-36.0); MEAN PLATELET VOLUME 8.2 FL (7.0-11.0); MONO % 8.3 % (0.0-8.0); MONOCYTE # 0.8 TH/MM3 (0-0.9); NEUT % 87.5 % (16.0-70.0); PLATELET COUNT 622 TH/MM3 (150-450); RED BLOOD COUNT 4.53 MIL/MM3 (4.00-5.30); RED CELL DISTRIBUTION WIDTH 15.6 % (11.6-17.2); WHITE BLOOD COUNT 9.5 TH/MM3 (4.0-11.0)
--- NOTE | 2018-01-25 13:00 | RADRPT ---
EXAM DATE/TIME: 01/25/2018 12:39 [facility] COMPARISON: CHEST SINGLE AP, January 06, 2018, 14:26. INDICATIONS : Shortness of breath and general weakness, patient denies any pain. MEDICAL HISTORY : None. SURGICAL HISTORY : None. ENCOUNTER: Initial ACUITY: 1 day PAIN SCORE: 0/10 LOCATION: Bilateral chest FINDINGS: There is partial atelectasis of the right middle lobe. Mild basilar density may represent atelectasis and scarring. No focal consolidation. No significant pleural effusion. Mild interstitial prominence. CONCLUSION: 1. Partial atelectasis of right middle lobe. Probable basilar scarring and atelectasis. No significan t effusion. Mayur Howell MD on January 25, 2018 at 12:56 Board Certified Radiologist. This report was verified electronically.
[2018-01-25 13:12] LABS: INTERNATIONAL NORMALIZED RATIO 1.1 RATIO; PROTHROMBIN TIME - PATIENT 11.1 SEC (9.8-11.6)
[2018-01-25 13:19] LABS: ALBUMIN 3.6 GM/DL (3.4-5.0); AST (GOT) 24 U/L (15-37); BICARBONATE 26.5 MEQ/L (21.0-32.0); BLOOD UREA NITROGEN 10 MG/DL (7-18); CALCIUM 8.7 MG/DL (8.5-10.1); CHLORIDE 96 MEQ/L (98-107); CREATININE 0.47 MG/DL (0.50-1.00); GLOMERULAR FILTRATION RATE 125 ML/MIN (>89); GLUCOSE,RANDOM 104 MG/DL (74-106); SODIUM (NA) 133 MEQ/L (136-145)
[2018-01-25 13:25] LABS: ALKALINE PHOSPHATASE 147 U/L (45-117); ALT (GPT) 19 U/L (10-53); TOTAL BILIRUBIN ADULT 0.5 MG/DL (0.2-1.0); TOTAL PROTEIN 7.2 GM/DL (6.4-8.2); TROPONIN I LESS THAN 0.02 NG/ML (0.02-0.05)
[2018-01-25 13:45] LABS: BILIRUBIN, URINE NEG (NEG); BLOOD, URINE NEG (NEG); GLUCOSE,URINE NEG (NEG); KETONE, URINE TRACE mg/dL (NEG); MUCUS URINE FEW /lpf (OCC); NITRITE,URINE NEG (NEG); PH, URINE 7.5 (5.0-8.5); SQUAMOUS EPITHELIAL CELL URINE <1 /hpf (0-5); URINE COLOR LIGHT-YELLOW (YELLW/STRAW); URINE LEUKOCYTE ESTERASE NEG (NEG)
[2018-01-25 16:22] VITALS: BP 159/74; PULSE 106; RESP 18; O2SAT 92
--- NOTE | 2018-01-25 19:03 | RADRPT ---
EXAM DATE/TIME: 01/25/2018 18:44 [facility] COMPARISON: No previous studies available for comparison. INDICATIONS : Shortness of breath. IV CONTRAST: 70 cc Omnipaque 350 (iohexol) IV RADIATION DOSE: 5.47 CTDIvol (mGy) MEDICAL HISTORY : Hypertension. SURGICAL HISTORY : None. ENCOUNTER: Initial ACUITY: 4 - 6 days PAIN SCALE: 0/10 LOCATION: Bilateral chest TECHNIQUE: Volumetric scanning of the chest was performed using a pulmonary embolism protocol MIP images were re constructed. Using automated exposure control and adjustment of the mA and/or kV according to patien t size, radiation dose was kept as low as reasonably achievable to obtain optimal diagnostic quality images. DICOM format image data is available electronically for review and comparison. Follow-up recommendations for detected pulmonary nodules are based at a minimum on nodule size and pa tient risk factors according to Fleischner Society Guidelines. FINDINGS: PULMONARY ARTERIES: No filling defects are seen in the pulmonary arteries through the segmental level. LUNGS: There is bronchiectasis of the lower lobes. There is mucous plugging seen in the bronchi in the lower lobes bilaterally. PLEURAE: There is no pleural thickening or pleural effusion. MEDIASTINUM: There is good visualization of the great vessels of the middle mediastinum. No evidence of mediastin al or hilar adenopathy/mass. MUSCULOSKELETAL: There are old healed bilateral rib fractures being more numerous on the right. MISCELLANEOUS: The visualized upper abdominal organs demonstrate no acute abnormality. CONCLUSION: 1. No pulmonary embolus. 2. Bronchiectasis lower lobes with areas of mucus plugging bilaterally in the lower lobes. Jayesh Villalta MD on January 25, 2018 at 18:58 Board Certified Radiologist. This report was verified electronically.
[2018-01-25 19:12] VITALS: BP 124/61; PULSE 100; RESP 20; O2SAT 93
[2018-01-25] MEDS ORDERED: ZITHTAB PO (19:20)
[2018-01-25] MEDS ORDERED: PRED20 PO (19:20)
--- NOTE | 2018-01-26 14:42 | EKG ---
Date Performed: 01/25/2018 Time Performed: 12:24:37 PTAGE: 87 years EKG: Sinus rhythm MARKED LEFT AXIS DEVIATION ABNORMAL ECG Since PREVIOUS TRACING , no significant change noted PREVIOUS TRACIN01/06/2018 14.57 DOCTOR: Haresh Mcelroy Interpretating Date/Time 01/26/2018 14:41:19
== END 2018-01-25 21:45 | disposition home or self-care (01) ==
LOC: NEPE 11:48
DX: J44.0 Chronic obstructive pulmonary disease with (acute) lower respiratory infection (principal); J22 Unspecified acute lower respiratory infection; E78.00 Pure hypercholesterolemia, unspecified; I10 Essential (primary) hypertension; R06.02 Shortness of breath; Z79.899 Other long term (current) drug therapy
CPT/HCPCS: 71046; 71275; 80053; 81001; 82550; 83735; 83880; 84484; 85025; 85379; 85610; 85730; 93005; 99285; P9612; Q9967

== ENCOUNTER 2018-01-29 12:59 | Observation (INO) | payer MEDICARE, OTHER ==
[2018-01-29] VITALS (8 sets, daily range): BP systolic 125–161; BP diastolic 59–69; PULSE 78–98; RESP 17–20; TEMP 97.8–97.9; O2SAT 89–97
[~2018-01-29] VITALS: Ht 152.4 cm; Wt 47.7 kg
[~2018-01-29 12:59] MED LIST changes: +PRED20 PO; +ZITHTAB PO
--- NOTE | 2018-01-29 13:52 | PD ---
HPI Chief Complaint: Respiratory Symptoms Time Seen by Provider: 13:47 Travel History International Travel<30 days: No Contact w/Intl Traveler<30days: No Traveled to known affect area: No History of Present Illness HPI 87-year-old female with reportedly a history of COPD, hyperlipidemia, hypertension, osteoarthritis, resident of [facility], presents for evaluation of dyspnea and cough. She does not recall when symptoms started. She was seen here for evaluation of the symptoms in January 25. She had a CT pulmonary angiogram at that time which revealed no PE but there was bronchiectasis in the lower lobes with areas of mucus plugging bilaterally. She was prescribed prednisone and azithromycin for COPD exacerbation. She reports that she is almost complete with the medication and her symptoms have worsened this is what prompted evaluation. She reports cough , dyspnea. Denies chest pain, abdominal pain, nausea, vomiting, diarrhea, constipation, fevers or chills. Although she reports a history of COPD, she is not prescribed any medications for COPD treatment. According to ED triage note her home health nurse reported that her oxygen saturation was 87% prior to arrival. PFSH Past Medical History Hx Anticoagulant Therapy: Yes (asa) Arthritis: Yes Asthma: No Heart Rhythm Problems: No Cancer: No Cardiovascular Problems: Yes High Cholesterol: Yes Chest Pain: No Congestive Heart Failure: No COPD: No Cerebrovascular Accident: No Diabetes: No Endocrine: No Genitourinary: No Hypertension: Yes Immune Disorder: No Implanted Vascular Access Dvce: Yes Musculoskeletal: Yes Neurologic: Yes Psychiatric: No Respiratory: Yes Migraines: No Seizures: No Sleep Apnea: No Thyroid Disease: No Past Surgical History Abdominal Surgery: No Ear Surgery: Yes (JESSICA CATARACTS) Genitourinary Surgery: No Joint Replacement: Yes (LEFT HIP REPLACEMENT) Thoracic Surgery: No Other Surgery: Yes Social History Alcohol Use: No Tobacco Use: No Substance Use: No Allergies-Medications (Allergen,Severity, Reaction): Coded Allergies: No Known Allergies (Verified , 03/28/16) Reported Meds & Prescriptions Reported Meds & Active Scripts Active Prednisone 20 Mg Tab 40 Mg PO DAILY Take 40 mg (2 tablets) daily for 5 days Zithromax Z-Og (Azithromycin) 250 Mg Dspk 250 Mg PO DIRECTED 500 MG (2 tabs) day 1, then 1 tab days 2-5. Reported Calcium Citrate + D3 Maximum Strength (Calcium Citrate-Vitamin D) 315-250 Mg- Unit Tab 1 Tab PO DAILY Lisinopril 10 Mg Tab 10 Mg PO DAILY Lovastatin 20 Mg Tab 20 Mg PO DAILY Aspirin 81 Mg Chew 81 Mg CHEW DAILY Amlodipine (Amlodipine Besylate) 10 Mg Tab 10 Mg PO DAILY Review of Systems Except as stated in HPI: all other systems reviewed are Neg Physical Exam Narrative GENERAL: Elderly female in no acute distress. Her oxygen saturation is 89-90% on room air in initial examination. SKIN: Warm and dry. HEAD: Atraumatic. Normocephalic. EYES: Pupils equal and round. No scleral icterus. No injection or drainage. ENT: No nasal bleeding or discharge. Mucous membranes pink and moist. NECK: Trachea midline. No JVD. CARDIOVASCULAR: Regular rate and rhythm. No murmur appreciated. RESPIRATORY: No accessory muscle use. Inspiratory and expiratory wheezing noted bilaterally with diminished breath sounds. GASTROINTESTINAL: Abdomen soft, non-tender, nondistended. Hepatic and splenic margins not palpable. MUSCULOSKELETAL: No obvious deformities. No clubbing. No cyanosis. No edema. NEUROLOGICAL: Awake and alert. No obvious cranial nerve deficits. Motor grossly within normal limits. Normal speech. PSYCHIATRIC: Appropriate mood and affect; insight and judgment normal. Data Data Last Documented VS Vital Signs Date Time Temp Pulse Resp B/P (MAP) Pulse Ox O2 Delivery O2 Flow Rate FiO2 01/29/18 14:02 78 18 137/63 (87) 97 Nasal Cannula 2.00 01/29/18 13:03 97.8 Orders Orders Complete Blood Count With Diff (01/29/18 13:06) Basic Metabolic Panel (Bmp) (01/29/18 13:06) B-Type Natriuretic Peptide (01/29/18 13:06) Act Partial Throm Time (Ptt) (01/29/18 13:06) Prothrombin Time / Inr (Pt) (01/29/18 13:06) Magnesium (Mg) (01/29/18 13:06) Ckmb (Isoenzyme) Profile (01/29/18 13:06) Troponin I (01/29/18 13:06) Electrocardiogram (01/29/18 13:06) Chest, Pa & Lat (01/29/18 13:06) Arterial Blood Gas (Abg) (01/29/18 ) Albuterol-Ipratropium Neb (Duoneb Neb) (01/29/18 14:00) Methylprednisolone So Succ Inj (Solumedr (01/29/18 14:00) Ecg Monitoring (01/29/18 13:47) Oximetry (01/29/18 13:47) Admit Order (Ed Use Only) (01/29/18 15:48) Labs Laboratory Tests Test 01/29/18 14:00 01/29/18 14:03 White Blood Count 8.1 TH/MM3 Red Blood Count 4.46 MIL/MM3 Hemoglobin 13.7 GM/DL Hematocrit 40.8 % Mean Corpuscular Volume 91.5 FL Mean Corpuscular Hemoglobin 30.7 PG Mean Corpuscular Hemoglobin Concent 33.6 % Red Cell Distribution Width 15.5 % Platelet Count 676 TH/MM3 Mean Platelet Volume 8.2 FL Neutrophils (%) (Auto) 92.2 % Lymphocytes (%) (Auto) 4.2 % Monocytes (%) (Auto) 3.4 % Eosinophils (%) (Auto) 0.0 % Basophils (%) (Auto) 0.2 % Neutrophils # (Auto) 7.5 TH/MM3 Lymphocytes # (Auto) 0.3 TH/MM3 Monocytes # (Auto) 0.3 TH/MM3 Eosinophils # (Auto) 0.0 TH/MM3 Basophils # (Auto) 0.0 TH/MM3 CBC Comment AUTO DIFF Differential Comment AUTO DIFF CONFIRMED Platelet Estimate HIGH Platelet Morphology Comment ENLARGED Prothrombin Time 10.8 SEC Prothromb Time International Ratio 1.1 RATIO Activated Partial Thromboplast Time 30.3 SEC Blood Urea Nitrogen 29 MG/DL Creatinine 0.68 MG/DL Random Glucose 132 MG/DL Calcium Level 8.7 MG/DL Magnesium Level 2.0 MG/DL Sodium Level 137 MEQ/L Potassium Level 4.7 MEQ/L Chloride Level 102 MEQ/L Carbon Dioxide Level 28.2 MEQ/L Anion Gap 7 MEQ/L Estimat Glomerular Filtration Rate 82 ML/MIN Total Creatine Kinase 30 U/L Troponin I LESS THAN 0.02 NG/ML B-Type Natriuretic Peptide 79 PG/ML Blood Gas Puncture Site RT RADIAL Blood Gas Patient Temperature 98.6 Blood Gas HCO3 29 mmol/L Blood Gas Base Excess 5.8 mmol/L Blood Gas Oxygen Saturation 93 % Arterial Blood pH 7.48 Arterial Blood Partial Pressure CO2 40 mmHg Arterial Blood Partial Pressure O2 72 mmHG Arterial Blood Oxygen Content 17.4 Vol % Arterial Blood Carboxyhemoglobin 1.2 % Arterial Blood Methemoglobin 0.7 % Blood Gas Hemoglobin 13.3 G/DL Oxygen Delivery Device ROOM AIR Blood Gas Inspired Oxygen 21 % [facility] Medical Decision Making Medical Screen Exam Complete: Yes Emergency Medical Condition: Yes Medical Record Reviewed: Yes Differential Diagnosis Bronchiectasis, COPD exacerbation, pneumonia, pneumothorax, bronchitis Narrative Course The patient was placed on ECG monitoring pulse oximetry. Lab work, EKG and chest x-ray were initiated while the patient was in triage. An ABG has been ordered. The patient will be given DuoNeb treatment and 125 mg of Solu-Medrol. Chest x-ray reveals chronic fibrotic changes bilaterally unchanged from prior study, findings of COPD. ABG on room air reveals pH 7.48, normal O2 and CO2 levels. At this point in time the plan is to admit the patient for COPD exacerbation. She is agreeable. Discussed with Dr. Morris who declines RDU admission, discussed with Dr. Fajardo who is agreeable with admission. Diagnosis Primary Impression: COPD exacerbation Additional Impression: Hypoxia Admitting Information Admitting Physician Requests: Admit Gumaro Greenberg Jan 29, 2018 13:52
[2018-01-29] MEDS ORDERED: methylPREDNISolone SOD SUCC 125 MG/2 ML VIAL IV PUSH ONE (14:00)
--- NOTE | 2018-01-29 14:04 | RADRPT ---
EXAM DATE/TIME: 01/29/2018 13:39 [place] COMPARISON: CT PULMONARY ANGIOGRAM, January 25, 2018, 18:44. CHEST PA & LAT, January 25, 2018, 12:39. INDICATIONS : Short of breath. MEDICAL HISTORY : Cardiovascular disease. Hypertension SURGICAL HISTORY : Hysterectomy. ENCOUNTER: Subsequent ACUITY: 1 day PAIN SCORE: 0/10 LOCATION: Bilateral chest FINDINGS: The cardiac silhouette is normal in transverse diameter. There are chronic fibrotic changes bilateral ly. There is no evidence of pneumonia. No pleural effusions are identified. The lungs are hyperinfla ashley with increase in anterior posterior dimension compatible with COPD. CONCLUSION: Chronic fibrotic changes bilaterally unchanged from the prior study. No acute pulmonary disease. Find ings of COPD Haresh Banuelos MD on January 29, 2018 at 13:56 Board Certified Radiologist. This report was verified electronically.
[2018-01-29] MEDS: RESP: ALBUTEROL 2.5 MG/IPRATROPIUM 0.5 MG NEB (SCH) INH (14:17)
[2018-01-29 14:35] LABS: AUTOMATED NEUTROPHIL # 7.5 TH/MM3 (1.8-7.7); BASOPHIL % 0.2 % (0.0-2.0); HEMATOCRIT 40.8 % (35.0-46.0); HEMOGLOBIN 13.7 GM/DL (11.6-15.3); LYMPH % 4.2 % (9.0-44.0); LYMPHOCYTE # 0.3 TH/MM3 (1.0-4.8); MEAN CELL VOLUME 91.5 FL (80.0-100.0); MEAN CORPUSCULAR HEMOGLOBIN 30.7 PG (27.0-34.0); MEAN CORPUSCULAR HGB CONC 33.6 % (32.0-36.0); MEAN PLATELET VOLUME 8.2 FL (7.0-11.0); MONO % 3.4 % (0.0-8.0); MONOCYTE # 0.3 TH/MM3 (0-0.9); NEUT % 92.2 % (16.0-70.0); PLATELET COUNT 676 TH/MM3 (150-450); RED BLOOD COUNT 4.46 MIL/MM3 (4.00-5.30); RED CELL DISTRIBUTION WIDTH 15.5 % (11.6-17.2); WHITE BLOOD COUNT 8.1 TH/MM3 (4.0-11.0)
[2018-01-29 14:42] LABS: INTERNATIONAL NORMALIZED RATIO 1.1 RATIO; PROTHROMBIN TIME - PATIENT 10.8 SEC (9.8-11.6)
[2018-01-29 14:51] LABS: BICARBONATE 28.2 MEQ/L (21.0-32.0); BLOOD UREA NITROGEN 29 MG/DL (7-18); CALCIUM 8.7 MG/DL (8.5-10.1); CHLORIDE 102 MEQ/L (98-107); CREATININE 0.68 MG/DL (0.50-1.00); GLOMERULAR FILTRATION RATE 82 ML/MIN (>89); GLUCOSE,RANDOM 132 MG/DL (74-106); SODIUM (NA) 137 MEQ/L (136-145); TROPONIN I LESS THAN 0.02 NG/ML (0.02-0.05)
--- NOTE | 2018-01-29 15:28 | PD ---
Data Data Last Documented VS Vital Signs Date Time Temp Pulse Resp B/P (MAP) Pulse Ox O2 Delivery O2 Flow Rate FiO2 01/29/18 14:02 78 18 137/63 (87) 97 Nasal Cannula 2.00 01/29/18 13:03 97.8 Orders Orders Complete Blood Count With Diff (01/29/18 13:06) Basic Metabolic Panel (Bmp) (01/29/18 13:06) B-Type Natriuretic Peptide (01/29/18 13:06) Act Partial Throm Time (Ptt) (01/29/18 13:06) Prothrombin Time / Inr (Pt) (01/29/18 13:06) Magnesium (Mg) (01/29/18 13:06) Ckmb (Isoenzyme) Profile (01/29/18 13:06) Troponin I (01/29/18 13:06) Electrocardiogram (01/29/18 13:06) Chest, Pa & Lat (01/29/18 13:06) Arterial Blood Gas (Abg) (01/29/18 ) Albuterol-Ipratropium Neb (Duoneb Neb) (01/29/18 14:00) Methylprednisolone So Succ Inj (Solumedr (01/29/18 14:00) Ecg Monitoring (01/29/18 13:47) Oximetry (01/29/18 13:47) Labs Laboratory Tests Test 01/29/18 14:00 01/29/18 14:03 White Blood Count 8.1 TH/MM3 Red Blood Count 4.46 MIL/MM3 Hemoglobin 13.7 GM/DL Hematocrit 40.8 % Mean Corpuscular Volume 91.5 FL Mean Corpuscular Hemoglobin 30.7 PG Mean Corpuscular Hemoglobin Concent 33.6 % Red Cell Distribution Width 15.5 % Platelet Count 676 TH/MM3 Mean Platelet Volume 8.2 FL Neutrophils (%) (Auto) 92.2 % Lymphocytes (%) (Auto) 4.2 % Monocytes (%) (Auto) 3.4 % Eosinophils (%) (Auto) 0.0 % Basophils (%) (Auto) 0.2 % Neutrophils # (Auto) 7.5 TH/MM3 Lymphocytes # (Auto) 0.3 TH/MM3 Monocytes # (Auto) 0.3 TH/MM3 Eosinophils # (Auto) 0.0 TH/MM3 Basophils # (Auto) 0.0 TH/MM3 CBC Comment AUTO DIFF Prothrombin Time 10.8 SEC Prothromb Time International Ratio 1.1 RATIO Activated Partial Thromboplast Time 30.3 SEC Blood Urea Nitrogen 29 MG/DL Creatinine 0.68 MG/DL Random Glucose 132 MG/DL Calcium Level 8.7 MG/DL Magnesium Level 2.0 MG/DL Sodium Level 137 MEQ/L Potassium Level 4.7 MEQ/L Chloride Level 102 MEQ/L Carbon Dioxide Level 28.2 MEQ/L Anion Gap 7 MEQ/L Estimat Glomerular Filtration Rate 82 ML/MIN Total Creatine Kinase 30 U/L Troponin I LESS THAN 0.02 NG/ML B-Type Natriuretic Peptide 79 PG/ML Blood Gas Puncture Site RT RADIAL Blood Gas Patient Temperature 98.6 Blood Gas HCO3 29 mmol/L Blood Gas Base Excess 5.8 mmol/L Blood Gas Oxygen Saturation 93 % Arterial Blood pH 7.48 Arterial Blood Partial Pressure CO2 40 mmHg Arterial Blood Partial Pressure O2 72 mmHG Arterial Blood Oxygen Content 17.4 Vol % Arterial Blood Carboxyhemoglobin 1.2 % Arterial Blood Methemoglobin 0.7 % Blood Gas Hemoglobin 13.3 G/DL Oxygen Delivery Device ROOM AIR Blood Gas Inspired Oxygen 21 % MDM Supervised Visit with ROSHAN: Yes Narrative Course I reviewed the case in detail with ELISA Naik. I evaluated the patient. She is here with cough and dyspnea. Reportedly has history of COPD. I reviewed the workup in entirety. Patient is improved but not stable for outpatient follow-up. She has an acute exacerbation of chronic COPD. We are trying to place her in observation in the rapid decision unit. Diagnosis Primary Impression: COPD exacerbation Admitting Information Admitting Physician Requests: Observation Luis Manuel Crisostomo MD Jan 29, 2018 15:28
[2018-01-29] MEDS ORDERED: SODIUM CHLORIDE 0.9% FLUSH 10 ML FLUSH IV FLUSH PRN (16:00)
[2018-01-29] MEDS ORDERED: NALOXONE HCL 0.4 MG/ML AMP IV PUSH PRN (16:00)
[2018-01-29] MEDS ORDERED: RESP: ALBUTEROL 2.5 MG/IPRATROPIUM 0.5 MG NEB (PRN) NEB (16:00)
--- NOTE | 2018-01-29 16:07 | HHI.HP ---
HPI Service [facility] Primary Care Physician Unknown Admission Diagnosis COPD exacerbation, hypoxia Diagnoses: Travel History International Travel<30 Days: No Contact w/Intl Traveler <30 Da: No Traveled to Known Affected Are: No History of Present Illness History from patient, ER physician communication, and review of medical records. Patient reported that she had been short of breath for the past 4 days. Reports of cough. However no fever. Sputum is productive with pale yellowish color. She states that she tried prednisone and Z-Og that was given to her in her ER visit on January 25, 2018. However it did not help her much with her shortness of breath. She denies any sick contacts. She returned back today with her son because she was just not getting better. Patient denies any other symptoms such as chest pain/palpitations/dizziness/ syncopal episodes. Denies any urinary burning or pain on urination. Denies any blood in her stool or urine. Denies any nausea/vomiting/diarrhea. Denies prior history of lung disease. She states that she had one times episode of shortness of breath test as this in her lifetime but she does not even remember one it was. She denies any prior history of tobacco abuse. But stated she was exposed to secondhand smoke from her father all her life. Review of Systems Except as stated in HPI: all other systems reviewed are Neg Past Family Social History Past Medical History htn Past Surgical History hip fx Allergies: Coded Allergies: No Known Allergies (Verified , 03/28/16) Family History none that she knows of Social History never smoked only occasional drinks no drugs lives at independent [facility] of [facility] Physical Exam Vital Signs Vital Signs Date Time Temp Pulse Resp B/P (MAP) Pulse Ox O2 Delivery O2 Flow Rate FiO2 01/29/18 15:00 92 17 142/65 (90) 94 Nasal Cannula 2.00 01/29/18 14:02 78 18 137/63 (87) 97 Nasal Cannula 2.00 01/29/18 13:56 78 89 Room Air 01/29/18 13:56 89 Room Air 01/29/18 13:03 97.8 93 20 161/69 (99) 91 Physical Exam GENERAL: This is a well-nourished, well-developed patient, in no apparent distress. SKIN: No rashes, ecchymoses or lesions. Cool and dry. HEAD: Atraumatic. Normocephalic. No temporal or scalp tenderness. EYES: . No scleral icterus. No injection or drainage. ENT: Nose without bleeding, purulent drainage or septal hematoma. . Airway patent. NECK: Trachea midline. No JVD Supple, nontender, no meningeal signs. CARDIOVASCULAR: Regular rate and rhythm without murmurs, gallops, or rubs. RESPIRATORY: Bilateral basilar crepitations up to mid lungs. GASTROINTESTINAL: Abdomen soft, non-tender, nondistended. . No guarding. MUSCULOSKELETAL: Extremities without clubbing, cyanosis, or edema. No calf tenderness. NEUROLOGICAL: Awake and alert. Motor and sensory grossly within normal limits. Normal speech. Laboratory Laboratory Tests Test 01/29/18 14:00 01/29/18 14:03 White Blood Count 8.1 Red Blood Count 4.46 Hemoglobin 13.7 Hematocrit 40.8 Mean Corpuscular Volume 91.5 Mean Corpuscular Hemoglobin 30.7 Mean Corpuscular Hemoglobin Concent 33.6 Red Cell Distribution Width 15.5 Platelet Count 676 Mean Platelet Volume 8.2 Neutrophils (%) (Auto) 92.2 Lymphocytes (%) (Auto) 4.2 Monocytes (%) (Auto) 3.4 Eosinophils (%) (Auto) 0.0 Basophils (%) (Auto) 0.2 Neutrophils # (Auto) 7.5 Lymphocytes # (Auto) 0.3 Monocytes # (Auto) 0.3 Eosinophils # (Auto) 0.0 Basophils # (Auto) 0.0 CBC Comment AUTO DIFF Differential Comment AUTO DIFF CONFIRMED Platelet Estimate HIGH Platelet Morphology Comment ENLARGED Prothrombin Time 10.8 Prothromb Time International Ratio 1.1 Activated Partial Thromboplast Time 30.3 Blood Urea Nitrogen 29 Creatinine 0.68 Random Glucose 132 Calcium Level 8.7 Magnesium Level 2.0 Sodium Level 137 Potassium Level 4.7 Chloride Level 102 Carbon Dioxide Level 28.2 Anion Gap 7 Estimat Glomerular Filtration Rate 82 Total Creatine Kinase 30 Troponin I LESS THAN 0.02 B-Type Natriuretic Peptide 79 Blood Gas Puncture Site RT RADIAL Blood Gas Patient Temperature 98.6 Blood Gas HCO3 29 Blood Gas Base Excess 5.8 Blood Gas Oxygen Saturation 93 Arterial Blood pH 7.48 Arterial Blood Partial Pressure CO2 40 Arterial Blood Partial Pressure O2 72 Arterial Blood Oxygen Content 17.4 Arterial Blood Carboxyhemoglobin 1.2 Arterial Blood Methemoglobin 0.7 Blood Gas Hemoglobin 13.3 Oxygen Delivery Device ROOM AIR Blood Gas Inspired Oxygen 21 Result Diagram: 01/29/18 1400 01/29/18 1400 Imaging Last 48 hours Impressions Chest X-Ray 01/29/18 1306 Signed Impressions: Service Date/Time: Monday, January 29, 2018 13:39 - CONCLUSION: Chronic fibrotic changes bilaterally unchanged from the prior study. No acute pulmonary disease. Findings of COPD MD Abel Peterson VTE Risk Assessment Caprini VTE Risk Assessment: Mod/High Risk (score >= 2) Caprini Risk Assessment Model Point Value = 1 Point Value = 2 Point Value = 3 Point Value = 5 Age 41-60 Minor surgery BMI > 25 kg/m2 Swollen legs Varicose veins or History of unexplained or recurrent spontaneous Oral contraceptives or hormone replacement Sepsis (< 1 month) Serious lung disease, including pneumonia (< 1 month) Abnormal pulmonary function Acute myocardial infarction Congestive heart failure (< 1 month) History of inflammatory bowel disease Medical patient at bed rest Age 61-74 Arthroscopic surgery Major open surgery (> 45 min) Laparoscopic surgery (> 45 min) Malignancy Confined to bed (> 72 hours) Immobilizing plaster cast Central venous access Age >= 75 History of VTE Family history of VTE Factor V Leiden Prothrombin [id number] Lupus anticoagulant Anticardiolipin antibodies Elevated serum homocysteine Heparin-induced thrombocytopenia Other congenital or acquired thrombophilia Stroke (< 1 month) Elective arthroplasty Hip, pelvis, or leg fracture Acute spinal cord injury (< 1 month) Prophylaxis Regimen Total Risk Factor Score Risk Level Prophylaxis Regimen 0-1 Low Early ambulation 2 Moderate Order ONE of the following: *Sequential Compression Device (SCD) *Heparin 5000 units SQ BID 3-4 Higher Order ONE of the following medications: *Heparin 5000 units SQ TID *Enoxaparin/Lovenox 40 mg SQ daily (WT < 150 kg, CrCl > 30 mL/min) *Enoxaparin/Lovenox 30 mg SQ daily (WT < 150 kg, CrCl > 10-29 mL/min) *Enoxaparin/Lovenox 30 mg SQ BID (WT < 150 kg, CrCl > 30 mL/min) AND/OR *Sequential Compression Device (SCD) 5 or more Highest Order ONE of the following medications: *Heparin 5000 units SQ TID (Preferred with Epidurals) *Enoxaparin/Lovenox 40 mg SQ daily (WT < 150 kg, CrCl > 30 mL/min) *Enoxaparin/Lovenox 30 mg SQ daily (WT < 150 kg, CrCl > 10-29 mL/min) *Enoxaparin/Lovenox 30 mg SQ BID (WT < 150 kg, CrCl > 30 mL/min) AND *Sequential Compression Device (SCD) Assessment and Plan Assessment and Plan Impression: Acute exacerbation of bronchiectasis. Bilateral lower lobes mucous plugging as evidenced by CT chest done on December. Hypoxia secondary to above. Possible underlying early pneumonia Underlying COPD with acute exacerbation History of hypertension Plan: Solu-Medrol 40 mg IV every 6 hours. Patient was given Solu-Medrol 125 mg IV in ER. Nebulizers scheduled and as needed. PPI while on steroids. Start patient on levofloxacin 500 mg p.o. daily. Telemetry monitoring. Oxygen supplementation. Would consult pulmonary since patient has significant bronchiectasis with mucus plugging. Possible that she would require oxygen and will be tough to wean her off it. DVT prophylaxis with Lovenox. GI prophylaxis on pantoprazole. Discussed Condition With Patient, ER PA, nursing staff Cindy Fajardo MD Jan 29, 2018 16:06
[2018-01-29] MEDS ORDERED: PILL SPLITTER OTHER PRN (16:45)
[2018-01-29] MEDS: RESP: ALBUTEROL 2.5 MG/IPRATROPIUM 0.5 MG NEB (SCH) NEB ×2 (16:54→20:43)
[2018-01-29] MEDS: LEVOFLOXACIN 500 MG TAB PO SCH (17:10)
[2018-01-29] MEDS: methylPREDNISolone SOD SUCC 40 MG/1 ML VIAL IV PUSH SCH ×2 (17:59→23:46)
[2018-01-29] MEDS: SODIUM CHLORIDE 0.9% FLUSH 10 ML FLUSH IV FLUSH SCH (20:02)
[2018-01-30] VITALS (11 sets, daily range): BP systolic 112–162; BP diastolic 55–69; PULSE 81–101; RESP 12–20; TEMP 97.5–98; O2SAT 93–99
[2018-01-30] MEDS: RESP: ALBUTEROL 2.5 MG/IPRATROPIUM 0.5 MG NEB (SCH) NEB ×4 (03:03→20:13)
[2018-01-30] MEDS: methylPREDNISolone SOD SUCC 40 MG/1 ML VIAL IV PUSH SCH ×2 (05:17→12:53)
[2018-01-30 05:29] LABS: BASOPHIL % 0.1 % (0.0-2.0); HEMATOCRIT 38.4 % (35.0-46.0); HEMOGLOBIN 13.1 GM/DL (11.6-15.3); LYMPH % 6.4 % (9.0-44.0); LYMPHOCYTE # 0.5 TH/MM3 (1.0-4.8); MEAN CELL VOLUME 90.8 FL (80.0-100.0); MEAN CORPUSCULAR HEMOGLOBIN 30.9 PG (27.0-34.0); MEAN PLATELET VOLUME 8.1 FL (7.0-11.0); MONO % 5.1 % (0.0-8.0); MONOCYTE # 0.4 TH/MM3 (0-0.9); NEUT % 88.4 % (16.0-70.0); PLATELET COUNT 547 TH/MM3 (150-450); RED BLOOD COUNT 4.23 MIL/MM3 (4.00-5.30); RED CELL DISTRIBUTION WIDTH 15.3 % (11.6-17.2); WHITE BLOOD COUNT 7.9 TH/MM3 (4.0-11.0)
[2018-01-30 05:44] LABS: BICARBONATE 30.5 MEQ/L (21.0-32.0); CALCIUM 8.7 MG/DL (8.5-10.1); CREATININE 0.54 MG/DL (0.50-1.00)
[2018-01-30 07:47] LABS: BANDS 18 % (0-6); LYMPHOCYTES 6 % (9-44); METAMYELOCYTES 2 % (0-1); MONOCYTES 2 % (0-8); MYELOCYTES 1 % (0-0); NEUTROPHIL # MANUAL DIFF 7.3 TH/MM3 (1.8-7.7); POLYS (SEG NEUTROPHILS) 71 % (16-70)
[2018-01-30 07:48] LABS: ACANTHOCYTES OCC (NORMAL)
[2018-01-30] MEDS ORDERED: CALCIUM CITRATE PO SCH (09:00)
[2018-01-30] MEDS ORDERED: CHOLECALCIFEROL PO SCH (09:00)
[2018-01-30] MEDS ORDERED: [UNRECOGNIZED DRUG - OTHER] PO SCH (09:00)
[2018-01-30] MEDS: ENOXAPARIN SODIUM 40 MG/0.4 ML SYRINGE SQ SCH (09:49)
[2018-01-30] MEDS: SODIUM CHLORIDE 0.9% FLUSH 10 ML FLUSH IV FLUSH SCH ×2 (09:49→21:06)
[2018-01-30] MEDS: PANTOPRAZOLE SOD 40 MG DELAYED RELEASE TAB PO SCH (09:50)
[2018-01-30] MEDS: CHOLECALCIFEROL (VIT D3) 1000 UNIT TAB PO SCH (09:50)
[2018-01-30] MEDS: ASPIRIN 81 MG CHEW TAB CHEW SCH (09:50)
[2018-01-30] MEDS: PRAVASTATIN SOD 20 MG TAB PO SCH (09:50)
[2018-01-30] MEDS: LISINOPRIL 10 MG TAB PO SCH (09:50)
[2018-01-30] MEDS: CALCIUM CARBONATE 1.25 GM (CA 500 MG) TAB PO SCH (09:50)
[2018-01-30 10:18] LABS: BACTERIA, URINE MANY /hpf; BILIRUBIN, URINE NEG (NEG); BLOOD, URINE NEG (NEG); GLUCOSE,URINE 150 mg/dL (NEG); KETONE, URINE 10 mg/dL (NEG); NITRITE,URINE NEG (NEG); PH, URINE 6.5 (5.0-8.5); SQUAMOUS EPITHELIAL CELL URINE 2 /hpf (0-5); URINE COLOR YELLOW (YELLW/STRAW); URINE LEUKOCYTE ESTERASE NEG (NEG)
--- NOTE | 2018-01-30 13:17 | EKG ---
Date Performed: 01/29/2018 Time Performed: 13:58:03 PTAGE: 87 years EKG: Sinus rhythm WITH SHORT GA INTERVAL BORDERLINE ECG PREVIOUS TRACING : 01/25/2018 12.24 DOCTOR: [place] Interpretating Date/Time 01/30/2018 13:16:07
--- NOTE | 2018-01-30 16:00 | HHI.PR ---
Subjective Remarks Patient says that shortness of breath is better today. Denies any chest pain. Says she feels like she may be able to go home. Objective Vital Signs Date Time Temp Pulse Resp B/P (MAP) Pulse Ox O2 Delivery O2 Flow Rate FiO2 01/30/18 11:20 97.5 81 12 140/65 (90) 95 01/30/18 08:00 2.00 01/30/18 07:41 98.0 99 20 145/65 (91) 93 01/30/18 07:23 99 Nasal Cannula 2.00 01/30/18 03:27 97.9 91 16 162/69 (100) 94 01/29/18 20:45 94 Nasal Cannula 2.00 01/29/18 18:44 97.9 98 18 142/65 (90) 94 01/29/18 17:24 01/29/18 17:11 93 17 125/59 (81) 96 Nasal Cannula 2.00 01/29/18 16:55 94 Nasal Cannula 2.00 Result Diagram: 01/30/18 0438 01/30/18 0438 Objective Remarks GENERAL: Patient sitting up in bed. Appears comfortable. SKIN: Warm and dry. HEAD: Normocephalic. EYES: No scleral icterus. No injection or drainage. NECK: Supple, trachea midline. No JVD. CARDIOVASCULAR: Regular rate and rhythm without murmurs, gallops, or rubs. RESPIRATORY: Breath sounds equal bilaterally. No accessory muscle use. GASTROINTESTINAL: Abdomen soft, non-tender, nondistended. MUSCULOSKELETAL: No cyanosis, or edema. BACK: Nontender without obvious deformity. No CVA tenderness. A/P Assessment and Plan //Acute exacerbation of bronchiectasis. //Bilateral lower lobes mucous plugging as evidenced by CT chest done on January 25, 2018. //Hypoxia secondary to above. //Acute on chronic COPD exacerbation = PPI while on steroids. = Continue Levaquin. Continue albuterol nebs. Taper steroids. =pulm consult pending due to mucus plugging. //History of hypertension = Blood pressure acceptable. Continue current regimen. Discharge Planning Plan discharge home with home health tomorrow Teaj Morris MD Jan 30, 2018 16:00
--- NOTE | 2018-01-30 16:01 | HHI.FF ---
Face to Face Verification Diagnosis: (1) Hyperlipemia (2) Dementia (3) COPD (chronic obstructive pulmonary disease) (4) COPD exacerbation Physical Therapy Order: Evaluate and Treat Home Health Nursing Order: Medical education Signs/symptoms of disease process Oxygen administration education Nursing assessment with vital signs Criminal Intelligence Specialist Order: To Evaluate: Support services Order: To Provide: Long range planning I have seen patient Savanna Stanford on 01/30/18. My clinical findings support the need for the requested home health care services because: Limited ability to care for self I certify that my clinical findings support that this patient is homebound because: Unsafe to leave home unassisted Teja Morris MD Jan 30, 2018 16:01
--- NOTE | 2018-01-30 16:56 | MB ---
cc: Fernanda Michael MD DATE: 01/30/2018 REASON FOR CONSULTATION: Acute tracheobronchitis unresponsive to therapy as an outpatient. HISTORY OF PRESENT ILLNESS: Mrs. Stanford is an 87-year-old female complaining of shortness of breath for 4-5 days, cough, expectoration of whitish-yellowish mucoid sputum, who came to the ER 01/25/2018 received a Z-Og, which she was taking at home without improvement. She denies history of fever, chills, hemoptysis and no history of TB or industrial exposure. She does not smoke. PAST MEDICAL HISTORY: Notable for hypertension, no diabetes, no heart disease. ALLERGIES: NONE KNOWN TO MEDICATION. SOCIAL HISTORY: Does not smoke, never did. Drinks alcohol socially. Does not use drugs. Lives at [facility]. REVIEW OF SYSTEMS: A 12-point review of systems is as per HPI and past history, otherwise negative. PHYSICAL EXAMINATION: GENERAL: The patient is alert, in no distress, on O2 via nasal cannula, oxygen saturation 97%. HEENT: Exam unremarkable. Eyes without icterus. NECK: Without adenopathy, thyroid enlargement. Central trachea. CHEST: A few rhonchi at bases, decrease with cough. CARDIAC: PMI not appreciated. S1, S2 audible. No murmur, no rub. ABDOMEN: Lax, bowel sounds audible. EXTREMITIES: No clubbing, cyanosis or edema. SKIN: Normal. No lymphadenopathy. LABORATORY DATA: White count 8000, hemoglobin 13, hematocrit 40, platelets 676,000. Sodium 137, potassium 4.7, BUN 29, creatinine 0.6, glucose 132. Chest X-ray: No acute abnormality seen. Chronic fibrotic change noted. CT scan of the chest done 01/25/2018 had revealed mucus plugging, atelectatic change at the bases. IMPRESSION: 1. Asthmatic bronchitis. 2. Bronchiectasis by CT of the chest. 3. Hypertension. PLAN: The patient be given oxygen as needed. Intravenous steroids and antibiotic therapy have been initiated and appropriately so. Bronchodilator therapy given. We will check baseline pulmonary function. Her arterial blood gas upon presentation is adequate. An echocardiogram would be appropriate as well to assess cardiac performance. We will followup her care along with you and, depending on progress, proceed further. I do thank you for asking me to partake in Mrs. Stanford's care. Fernanda Michael MD WWW/SUZI , 04:03 PM , 04:27 PM
[2018-01-30] MEDS: LEVOFLOXACIN 500 MG TAB PO SCH (17:16)
[2018-01-30] MEDS: predniSONE 20 MG TAB PO SCH (21:06)
[2018-01-31] VITALS (8 sets, daily range): BP systolic 114–165; BP diastolic 56–75; PULSE 85–108; RESP 12–20; TEMP 97.5–98.1; O2SAT 90–96
[2018-01-31] MEDS: RESP: ALBUTEROL 2.5 MG/IPRATROPIUM 0.5 MG NEB (SCH) NEB ×3 (05:22→15:43)
[2018-01-31] MEDS ORDERED: MAGNESIUM HYDROXIDE SUSP 30 ML CUP PO ONE (08:15)
[2018-01-31] MEDS ORDERED: DOCUSATE SODIUM 50 MG/SENNA 8.6 MG TAB PO ONE (08:15)
[2018-01-31] MEDS: predniSONE 20 MG TAB PO SCH (09:17)
[2018-01-31] MEDS: ASPIRIN 81 MG CHEW TAB CHEW SCH (09:17)
[2018-01-31] MEDS: CALCIUM CARBONATE 1.25 GM (CA 500 MG) TAB PO SCH (09:17)
[2018-01-31] MEDS: LISINOPRIL 10 MG TAB PO SCH (09:17)
[2018-01-31] MEDS: PANTOPRAZOLE SOD 40 MG DELAYED RELEASE TAB PO SCH (09:17)
[2018-01-31] MEDS: PRAVASTATIN SOD 20 MG TAB PO SCH (09:17)
[2018-01-31] MEDS: CHOLECALCIFEROL (VIT D3) 1000 UNIT TAB PO SCH (09:17)
[2018-01-31] MEDS: SODIUM CHLORIDE 0.9% FLUSH 10 ML FLUSH IV FLUSH SCH (09:18)
[2018-01-31] MEDS: ENOXAPARIN SODIUM 40 MG/0.4 ML SYRINGE SQ SCH (09:18)
--- NOTE | 2018-01-31 09:23 | HHI.PR ---
Subjective Remarks Patient says her shortness of breath is much better today. Still no bowel movement. Denies any chest pain. Feels like going home. Objective Vital Signs Date Time Temp Pulse Resp B/P (MAP) Pulse Ox O2 Delivery O2 Flow Rate FiO2 01/31/18 08:34 96 21 01/31/18 07:20 97.5 102 20 128/59 (82) 95 01/31/18 03:14 97.9 85 17 130/59 (82) 94 01/31/18 00:42 Nasal Cannula 2.00 01/30/18 23:03 98.0 92 17 112/55 (74) 94 01/30/18 20:16 97.6 91 17 120/58 (78) 94 01/30/18 20:13 93 Nasal Cannula 2.00 01/30/18 16:09 97.8 85 16 117/56 (76) 95 01/30/18 15:00 91 01/30/18 12:03 88 01/30/18 11:20 97.5 81 12 140/65 (90) 95 Result Diagram: 01/30/18 0438 01/30/18 0438 Objective Remarks GENERAL: Patient sitting up in bed. Appears comfortable. SKIN: Warm and dry. HEAD: Normocephalic. EYES: No scleral icterus. No injection or drainage. NECK: Supple, trachea midline. No JVD. CARDIOVASCULAR: Regular rate and rhythm without murmurs, gallops, or rubs. RESPIRATORY: Breath sounds equal bilaterally. No accessory muscle use. No wheezes, rhonchi, rales GASTROINTESTINAL: Abdomen soft, non-tender, nondistended. MUSCULOSKELETAL: No cyanosis, or edema. BACK: Nontender without obvious deformity. No CVA tenderness. A/P Assessment and Plan //Acute exacerbation of bronchiectasis. //Bilateral lower lobes mucous plugging as evidenced by CT chest done on January 25, 2018. //Hypoxia secondary to above. //Acute on chronic COPD exacerbation = PPI while on steroids. = Continue Levaquin. Continue albuterol nebs. Taper steroids. = Appreciate pulmonary assistance. PFTs and echocardiogram pending. Patient can likely go home after these are done. //Constipation. no bm in several days laxatives ordered. //History of hypertension = Blood pressure acceptable. Continue current regimen. Discharge Planning Plan discharge home with home health after echocardiogram and PFTs are done. Teja Morris MD Jan 31, 2018 09:23
[2018-01-31] MEDS ORDERED: LEVA500T33 PO (09:29)
[2018-01-31] MEDS ORDERED: PRED10PA2 PO (09:29)
[2018-01-31] MEDS ORDERED: Albuterol-Ipratropium Neb NEB ×2 (09:29)
[2018-01-31] MEDS ORDERED: PERI PO (09:29)
[2018-01-31] MEDS ORDERED: SYMB160A INH (09:29)
--- NOTE | 2018-01-31 17:06 | HHI.PR ---
Subjective Remarks ALERT AFEBRILE SEEMS COMFOTABLE Objective Vital Signs Date Time Temp Pulse Resp B/P (MAP) Pulse Ox O2 Delivery O2 Flow Rate FiO2 01/31/18 16:03 101 01/31/18 12:14 97 01/31/18 11:07 97.5 101 12 114/56 (75) 90 01/31/18 09:22 Room Air 01/31/18 08:34 96 21 01/31/18 08:10 97 01/31/18 07:20 97.5 102 20 128/59 (82) 95 01/31/18 03:14 97.9 85 17 130/59 (82) 94 01/31/18 00:42 Nasal Cannula 2.00 01/30/18 23:03 98.0 92 17 112/55 (74) 94 01/30/18 20:16 97.6 91 17 120/58 (78) 94 01/30/18 20:13 93 Nasal Cannula 2.00 Result Diagram: 01/30/188 01/30/18 043 Objective Remarks GENERAL: SKIN: Warm and dry. HEAD: Atraumatic. Normocephalic. EYES: Pupils equal and round. No scleral icterus. No injection or drainage. ENT: No nasal bleeding or discharge. Mucous membranes pink and moist. NECK: Trachea midline. No JVD. CARDIOVASCULAR: Regular rate and rhythm. RESPIRATORY: No accessory muscle use. Clear to auscultation. Breath sounds equal bilaterally. GASTROINTESTINAL: Abdomen soft, non-tender, nondistended. Hepatic and splenic margins not palpable. MUSCULOSKELETAL: Extremities without clubbing, cyanosis, or edema. No obvious deformities. NEUROLOGICAL: Awake and alert. No obvious cranial nerve deficits. Motor grossly within normal limits. Five out of 5 muscle strength in the arms and legs. Normal speech. PSYCHIATRIC: Appropriate mood and affect; insight and judgment normal. Assessment and Plan Assessment and Plan IMPRESSION ASTHMATIC BRONCHITIS BRONCHIECTASIS PLAN BRONCHODILATORS ANTIBIOTICS INCREASE ACTIVITY CHECK Fernanda Olivarez MD Jan 31, 2018 17:06
[2018-01-31] MEDS: LEVOFLOXACIN 500 MG TAB PO SCH (17:51)
--- NOTE | 2018-01-31 18:57 | HHI.DS ---
Discharge Summary Admission Date Jan 29, 2018 at 15:50 Discharge Date: Jan 31, 2018 Admitting Diagnosis COPD exacerbation, hypoxia (1) COPD (chronic obstructive pulmonary disease) ICD Code: J44.9 - Chronic obstructive pulmonary disease, unspecified Status: Chronic Procedures none Brief History - From Admission History from patient, ER physician communication, and review of medical records. Patient reported that she had been short of breath for the past 4 days. Reports of cough. However no fever. Sputum is productive with pale yellowish color. She states that she tried prednisone and Z-Og that was given to her in her ER visit on January 25, 2018. However it did not help her much with her shortness of breath. She denies any sick contacts. She returned back today with her son because she was just not getting better. Patient denies any other symptoms such as chest pain/palpitations/dizziness/ syncopal episodes. Denies any urinary burning or pain on urination. Denies any blood in her stool or urine. Denies any nausea/vomiting/diarrhea. Denies prior history of lung disease. She states that she had one times episode of shortness of breath test as this in her lifetime but she does not even remember one it was. She denies any prior history of tobacco abuse. But stated she was exposed to secondhand smoke from her father all her life. CBC/BMP: 01/30/18 0438 01/30/18 0438 Significant Findings Laboratory Tests Test 01/29/18 14:00 01/29/18 14:03 01/30/18 04:38 01/30/18 09:45 Platelet Count 676 TH/MM3 (150-450) 547 TH/MM3 (150-450) Neutrophils (%) (Auto) 92.2 % (16.0-70.0) 88.4 % (16.0-70.0) Lymphocytes (%) (Auto) 4.2 % (9.0-44.0) 6.4 % (9.0-44.0) Lymphocytes # (Auto) 0.3 TH/MM3 (1.0-4.8) 0.5 TH/MM3 (1.0-4.8) Platelet Estimate HIGH (NORMAL) HIGH (NORMAL) Platelet Morphology Comment ENLARGED (NORMAL) ENLARGED (NORMAL) Activated Partial Thromboplast Time 30.3 SEC (24.3-30.1) Blood Urea Nitrogen 29 MG/DL (7-18) 23 MG/DL (7-18) Random Glucose 132 MG/DL (74-106) 145 MG/DL (74-106) Estimat Glomerular Filtration Rate 82 ML/MIN (>89) Troponin I LESS THAN 0.02 NG/ML Blood Gas HCO3 29 mmol/L (22-26) Blood Gas Base Excess 5.8 mmol/L (-2-2) Arterial Blood pH 7.48 (7.380-7.420) Neutrophils % (Manual) 71 % (16-70) Band Neutrophils % 18 % (0-6) Lymphocytes % 6 % (9-44) Metamyelocytes 2 % (0-1) Myelocytes 1 % (0-0) Acanthocytes OCC (NORMAL) Urine Turbidity HAZY (CLEAR) Urine Glucose (UA) 150 mg/dL (NEG) Urine Ketones 10 mg/dL (NEG) Urine Bacteria MANY /hpf (NONE) Imaging Last Impressions Chest X-Ray 01/29/18 1306 Signed Impressions: Service Date/Time: Monday, January 29, 2018 13:39 - CONCLUSION: Chronic fibrotic changes bilaterally unchanged from the prior study. No acute pulmonary disease. Findings of COPD Haresh Banuelos MD Hospital Course Chest x-ray on admission with chronic fibrotic changes bilaterally unchanged from previous. Symptoms improved on steroids. Pulmonary medicine was consulted, echocardiogram performed with ejection fraction 6570 percent. No regional wall motion abnormalities. Trace aortic valve regurgitation. Patient was also treated for constipation and will be sent home on laxatives. Patient will be discharged home with Levaquin to complete treatment course, prednisone taper, DuoNeb's, Symbicort. For problem-based summary from most recent progress note, please see below. /Acute exacerbation of bronchiectasis. //Bilateral lower lobes mucous plugging as evidenced by CT chest done on January 25, 2018. //Hypoxia secondary to above. //Acute on chronic COPD exacerbation = PPI while on steroids. = Continue Levaquin. Continue albuterol nebs. Taper steroids. = Appreciate pulmonary assistance. PFTs and echocardiogram pending. Patient can likely go home after these are done. //Constipation. no bm in several days laxatives ordered. //History of hypertension = Blood pressure acceptable. Continue current regimen. Discharge Planning Plan discharge home with home health after echocardiogram and PFTs are done. Pt Condition on Discharge: Good Discharge Disposition: Disch w/ Home Health Serv Discharge Time: > 30 minutes Discharge Instructions DIET: Follow Instructions for: Heart Healthy Diet Activities you can perform: Regular-No Restrictions Follow up Referrals: PCP Follow-up - 1 Week Pulmonology - 1 Week with Fernanda Michael MD New Medications: Budesonide-Formoterol Inh (Symbicort Inh) 160-4.5 Mcg/Act Aero 1 PUFF INH Q12HR, #1 INHALER 0 Refills Prednisone (48) 10 mg tab Dose Pack (Prednisone (48) 10 mg tab Dose Pack) 10 Mg Dspk 10 MG PO DIRECTED for Inflammation, #1 DSPK 0 Refills Levofloxacin (Levaquin) 500 Mg Tablet 500 MG PO Q24H for copd for 3 Days, #3 TAB Sennosides-Docusate Sodium (Gnp Senna Plus 8.6-50 mg) 8.6 Mg-50 Mg Tab 1 TAB PO BID for Constipation for 30 Days, #60 TAB [Albuterol-Ipratropium Neb] () 1 AMPULE NEBU 1 AMPULE NEB Q6HR NEB for 30 Days [Albuterol-Ipratropium Neb] () 1 AMPULE NEBU 1 AMPULE NEB Q2HR NEB PRN for wheezing for 30 Days Continued Medications: Amlodipine (Amlodipine) 10 Mg Tab 10 MG PO DAILY for Blood Pressure Management, #30 TAB 0 Refills Aspirin (Aspirin) 81 Mg Chew 81 MG CHEW DAILY, TAB 0 Refills Calcium Citrate-Vitamin D (Calcium Citrate + D3 Maximum Strength) 315-250 Mg- Unit Tab 1 TAB PO DAILY, TAB Lisinopril (Lisinopril) 10 Mg Tab 10 MG PO DAILY, #30 TAB 0 Refills Lovastatin (Lovastatin) 20 Mg Tab 20 MG PO DAILY for Cholesterol Management, #30 TAB 0 Refills Discontinued Medications: Azithromycin (Zithromax Z-Og) 250 Mg Dspk 250 MG PO DIRECTED for Infection, #1 DSPK 0 Refills 500 MG (2 tabs) day 1, then 1 tab days 2-5. Prednisone (Prednisone) 20 Mg Tab 40 MG PO DAILY, #5 TAB 0 Refills Take 40 mg (2 tablets) daily for 5 days Teja Morris MD Jan 31, 2018 18:57
--- NOTE | 2018-01-31 19:22 | ECHRPT ---
Indication: Heart Failure CONCLUSIONS Normal left ventricular size. Wall thickness is measured at the upper limits of normal. The left ve ntricular systolic function is hyperdynamic with an estimated ejection fraction in the range of 65-70%. No reg ional wall motion abnormalities are present. Mild mitral annular calcification. Trace aortic valve regurgitation. There is mild tricuspid valve regurgitation. The estimated pulmonary arterial pressure is 51 mmHg. BP: / HR: 102 Rhythm: Sinus MEASUREMENTS (Male / Female) Normal Values Technical Quality:Fair 2D ECHO LV Diastolic Diameter PLAX 3.3 cm 4.2 - 5.9 / 3.9 - 5.3 cm LV Systolic Diameter PLAX 2.5 cm IVS Diastolic Thickness 1.1 cm 0.6 - 1.0 / 0.6 - 0.9 cm LVPW Diastolic Thickness 1.1 cm 0.6 - 1.0 / 0.6 - 0.9 cm LV Relative Wall Thickness 0.7 RV Internal Dim ED PLAX 2.7 cm LVOT Diameter 2.0 cm LA Systolic Diameter LX 3.2 cm 3.0 - 4.0 / 2.7 - 3.8 cm M-MODE Aortic Root Diameter MM 2.3 cm LA Systolic Diameter MM 3.6 cm LA Ao Ratio MM 1.6 AV Cusp Separation MM 1.8 cm DOPPLER AV Peak Velocity 154.0 cm/s AV Peak Gradient 9.5 mmHg AI Peak Velocity 351.3 cm/s AI Peak Gradient 49.4 mmHg AI Pressure Half Time 287.3 ms LVOT Peak Velocity 110.0 cm/s LVOT Peak Gradient 4.8 mmHg AV Area Cont Eq pk 2.2 cm LV E' Lateral Velocity 7.8 cm/s LV E' Septal Velocity 5.9 cm/s TR Peak Velocity 321.0 cm/s TR Peak Gradient 41.2 mmHg Right Atrial Pressure 10.0 mmHg Pulmonary Artery Systolic Pressu 51.2 mmHg Right Ventricular Systolic Press 51.2 mmHg FINDINGS LEFT VENTRICLE Normal left ventricular size. Wall thickness is measured at the upper limits of normal. The left ve ntricular systolic function is hyperdynamic with an estimated ejection fraction in the range of 65-70%. No reg ional wall motion abnormalities are present. RIGHT VENTRICLE Normal right ventricular size and systolic function. LEFT ATRIUM The left atrial size is normal. RIGHT ATRIUM The right atrial size is normal. ATRIAL SEPTUM Normal atrial septal thickness without atrial level shunting by limited color doppler interrogation. AORTA The aortic root and proximal ascending aorta are normal in size on limited imaging. MITRAL VALVE Mild mitral annular calcification. No mitral valve stenosis or regurgitation. AORTIC VALVE Trileaflet aortic valve. Trace aortic valve regurgitation. TRICUSPID VALVE Structurally normal tricuspid valve. There is mild tricuspid valve regurgitation. The estimated pulmonary arterial pressure is 51 mmHg. PULMONARY VALVE No pulmonary valve regurgitation or stenosis. VESSELS The inferior vena cava is normal in size. PERICARDIUM No pericardial effusion. Raf Alvarenga MD (Electronically Signed) Final Date:31 January 2018 19:21
[2018-01-31] MEDS ORDERED: DOCUSATE SODIUM 50 MG/SENNA 8.6 MG TAB PO SCH (21:00)
== END 2018-01-31 21:05 | disposition home or self-care (01) ==
LOC: NEPC 12:59 → NEDA 15:50 → INTOOBSV 15:50 → NEPFCDU 17:51
PROVIDERS: ADMIT Internal Medicine; ATTEND Internal Medicine
DX: J47.1 Bronchiectasis with (acute) exacerbation (principal); R09.02 Hypoxemia; J44.1 Chronic obstructive pulmonary disease with (acute) exacerbation; I10 Essential (primary) hypertension; E78.00 Pure hypercholesterolemia, unspecified; K59.00 Constipation, unspecified; M19.90 Unspecified osteoarthritis, unspecified site; Z79.899 Other long term (current) drug therapy; Z79.82 Long term (current) use of aspirin; Z77.22 Contact with and (suspected) exposure to environmental tobacco smoke (acute) (chronic)
CPT/HCPCS: 36600; 71046; 80048; 81001; 82550; 82805; 83735; 83880; 84484; 85007; 85025; 85027; 85610; 85730; 87086; 93005; 93306; 94150; 94618; 94640; 94664; 96372; 96374; 96376; 97162; 99285; G0378; G8987; G8988; J1650; J2920; J2930; J7512